=== PATIENT | male | born 1935 | race Caucasian/White ===

== ENCOUNTER 2017-01-08 17:38 | Inpatient (IN) | payer MEDICARE, BC ==
[~2017-01-08] VITALS: Ht 170.2 cm; Wt 91.2 kg
[~2017-01-08 17:38] MED LIST: ACTOS45 MG PO; ARICEPT10 MG PO; ASPIRIN81 MG PO; BAYER CHEWABLE81 MG PO; BUMETANIDE0.5 MG PO; COUMADIN3 MG; COUMADIN6 MG; COUMADIN6 MG PO; COZAAR25 MG PO; COZAAR50 MG PO; EXELON1 PATCH .1 TRANSDERM; EXELON1 PATCH .2 TRANSDERM; FLECAINIDE ACE100 MG PO; FLOMAX0.4 MG PO; K-DUR20 MEQ PO; KLONOPIN1 MG PO; LIPITOR20 MG PO; MULTI-DAY VITAM1 TAB PO; PERCOCET 10/3251 TA1 PO; PLAVIX75 MG PO; PROTONIX40 MG PO; TAMBOCOR100 MG PO; VESICARE10 MG PO; VESICARE5 MG PO; VITAMIN B PO; VITAMIN D31000 UNI2 PO
[2017-01-08 18:44] LABS: HEMATOCRIT 37.8 % (42.0-54.0); MCH 31.7 pg (26.0-34.0); MCHC 31.7 g/dL (31.0-37.0); MCV 99.7 fL (80.0-100.0); MEAN PLATELET VOLUME 10.1 fL (7.4-10.4); PLATELET COUNT 203 10x3/uL (130-400); RBC 3.79 10x6/uL (4.20-6.10); RDW 15.7 % (11.5-14.5); WBC 6.5 10x3/uL (4.8-10.8)
[2017-01-08 19:03] LABS: ALBUMIN 3.1 g/dL (3.4-5.0); ANION GAP 7.9 mmol/L (8-16); BILIRUBIN - TOTAL 0.69 mg/dL (0.2-1.3); CALCIUM 8.9 mg/dL (8.5-10.1); CARBON DIOXIDE 30.9 mmol/L (21.0-32.0); CREATININE - SERUM 1.9 mg/dL (0.6-1.3); MAGNESIUM - SERUM 1.7 mg/dL (1.8-2.4); POTASSIUM - SERUM 4.8 mmol/L (3.5-5.1); PROTEIN - SERUM 7.1 g/dL (6.4-8.2)
[2017-01-08 19:08] LABS: INR 2.79 (0.85-1.17); PROTIME 29.7 SECONDS (11.6-15.0)
[2017-01-08 19:10] LABS: LYMPHOCYTES 27 % (15-50); MONOCYTES 1 % (2-11); NEUTROPHILS 72 % (40-80); PLATELET ESTIMATE NORMAL
--- NOTE | 2017-01-08 19:55 | NUR ---
PATIENT RESTING IN BED AND DENIES NEEDS AT THIS TIME. NO SIGNS OF DISTRESS. BED IN LOWEST POSITION AND CALL LIGHT WITHIN REACH. ENCOURAGED THE PATIENT TO CALL IF HE HAS NEEDS. THORACIC SURGEON ARRIVED TO TAKE PATIENT FOR XRAYS ORDERED.
[2017-01-08 20:00] VITALS: BP 120/60
--- NOTE | 2017-01-08 20:08 | NUR ---
PATIENT RETURNED FROM XRAY.
[2017-01-08 22:55] VITALS: BP 128/76; BMI 31.5
[2017-01-09] VITALS: BP 123/68
[2017-01-09 06:44] LABS: PROTIME 31.4 SECONDS (11.6-15.0)
[2017-01-09 07:40] LABS: APPEARANCE CLEAR (CLEAR); BILIRUBIN NEGATIVE (NEGATIVE); COLOR YELLOW (YELLOW); GLUCOSE NEGATIVE (NEGATIVE); KETONE NEGATIVE (NEGATIVE); LEUKOCYTE ESTERASE NEGATIVE (NEGATIVE); NITRITE NEGATIVE (NEGATIVE); PROTEIN NEGATIVE (NEGATIVE); UROBILINOGEN NORMAL (NORMAL)
--- NOTE | 2017-01-09 07:57 | NUR ---
A&O, DENIES NEEDS, ASSESSMENT COMPLETE, BED LOWEST POSITION, SCD'S ON, CALL LIGHT IN REACH, WILL CONTINUE TO MONITOR
[2017-01-09 08:20] VITALS: BP 122/62
[2017-01-09 11:53] VITALS: BP 141/75
[2017-01-09 13:19] VITALS: Ht 170.2 cm; Wt 91.2 kg
--- NOTE | 2017-01-09 14:31 | NUR ---
SLEEPING AT THIS TIME WITH RESPIRATIONS EVEN AND NON LABORED. FAMILY AT BEDSIDE. CALL LIGHT IN REACH, WILL CONTINUE WITH PLAN OF CARE.
[2017-01-09 15:56] VITALS: BP 119/62
--- NOTE | 2017-01-09 19:30 | NUR ---
ASSISTED PATIENT TO THE RESTROOM AND CHANGED HIS LINENS. PATIENT IS RESTING IN BED AND DENIES NEEDS AT THIS TIME. BED IN LOWEST POSITION, CALL LIGHT WITHIN REACH, AND BOX ALARM ON AND ATTACHED TO THE PATIENT. ENCOURAGED THE PATIENT TO CALL IF HE HAS NEEDS.
[2017-01-09 20:00] VITALS: BP 98/65
[2017-01-10] VITALS: BP 113/64
[2017-01-10 04:00] VITALS: BP 121/64
[2017-01-10 06:13] LABS: BASOPHILS 0.1 % (0-2); EOSINOPHILS 1.1 % (0-7); HEMATOCRIT 33.3 % (42.0-54.0); HEMOGLOBIN 10.8 g/dL (13.5-17.5); IMMATURE GRANULOCYTES 0.3 % (0-5); LYMPHOCYTES 16.3 % (15-50); MCH 31.8 pg (26.0-34.0); MCHC 32.4 g/dL (31.0-37.0); MCV 97.9 fL (80.0-100.0); MEAN PLATELET VOLUME 10.5 fL (7.4-10.4); MONOCYTES 8.1 % (2-11); NEUTROPHILS 74.1 % (40-80); PLATELET COUNT 200 10x3/uL (130-400); RDW 15.9 % (11.5-14.5); WBC 7.9 10x3/uL (4.8-10.8)
[2017-01-10 06:17] LABS: INR 2.56 (0.85-1.17); PROTIME 27.7 SECONDS (11.6-15.0)
[2017-01-10 06:22] LABS: CALCIUM 8.4 mg/dL (8.5-10.1); CARBON DIOXIDE 24.6 mmol/L (21.0-32.0); CREATININE - SERUM 1.7 mg/dL (0.6-1.3); POTASSIUM - SERUM 4.6 mmol/L (3.5-5.1)
[2017-01-10 08:23] VITALS: BP 137/66
[2017-01-10 12:42] VITALS: BP 119/63
[2017-01-10 17:04] VITALS: BP 121/69
[2017-01-10 19:00] VITALS: BP 134/66
--- NOTE | 2017-01-10 19:36 | NUR ---
PATIENT RESTING IN BED AND DENIES NEEDS AT THIS TIME. ASSESSMENT AND VITALS COMPLETE. BED IN LOWEST POSITION AND CALL LIGHT WITHIN REACH. ENCOURAGED THE PATIENT AND FAMILY TO CALL IF THEY HAVE NEEDS.
[2017-01-11 02:49] VITALS: BP 132/66
[2017-01-11 04:00] VITALS: BP 119/64
[2017-01-11 08:03] LABS: BASOPHILS 0 % (0-2); EOSINOPHILS 1.7 % (0-7); HEMATOCRIT 32.7 % (42.0-54.0); HEMOGLOBIN 10.7 g/dL (13.5-17.5); IMMATURE GRANULOCYTES 0.5 % (0-5); LYMPHOCYTES 17.3 % (15-50); MCH 32.1 pg (26.0-34.0); MCHC 32.7 g/dL (31.0-37.0); MCV 98.2 fL (80.0-100.0); MEAN PLATELET VOLUME 9.6 fL (7.4-10.4); MONOCYTES 9.3 % (2-11); NEUTROPHILS 71.2 % (40-80); PLATELET COUNT 182 10x3/uL (130-400); RBC 3.33 10x6/uL (4.20-6.10); RDW 16.1 % (11.5-14.5); WBC 7.5 10x3/uL (4.8-10.8)
[2017-01-11 08:22] LABS: ANION GAP 12.2 mmol/L (8-16); CALCIUM 8.6 mg/dL (8.5-10.1); CARBON DIOXIDE 25.3 mmol/L (21.0-32.0); CREATININE - SERUM 1.5 mg/dL (0.6-1.3); POTASSIUM - SERUM 4.5 mmol/L (3.5-5.1)
[2017-01-11 08:23] LABS: INR 3.33 (0.85-1.17); PROTIME 34.1 SECONDS (11.6-15.0)
[2017-01-11 08:24] VITALS: BP 137/69
--- NOTE | 2017-01-11 10:21 | NUR ---
RIGHT JVD. RIGHT ARM HAS DEPENDENT EDEMA. EXPIRATORY WHEEZES PER AUSCULTATION IN ALL LUNG NUNO. DECREASED IVF TO 10ML/HR.
[2017-01-11 11:20] VITALS: BP 112/65
[2017-01-11 16:12] VITALS: BP 112/62
[2017-01-11 19:00] VITALS: BP 100/59
--- NOTE | 2017-01-11 23:41 | NUR ---
1919)REC'D. IN BED RESP. DEEP AND EVEN. FAMILY AT BEDSIDE.MONITOR SHOWING CAF.WILL CONTINUE TO MONITOR FOR ANY CHGES. AND FOLLOW CURRENT PLAN OF CARE.
[2017-01-12 04:00] VITALS: BP 123/65
[2017-01-12 05:51] LABS: BASOPHILS 0.1 % (0-2); EOSINOPHILS 1.8 % (0-7); HEMATOCRIT 32.7 % (42.0-54.0); HEMOGLOBIN 10.6 g/dL (13.5-17.5); IMMATURE GRANULOCYTES 0.4 % (0-5); LYMPHOCYTES 13.5 % (15-50); MCH 31.8 pg (26.0-34.0); MCHC 32.4 g/dL (31.0-37.0); MCV 98.2 fL (80.0-100.0); MEAN PLATELET VOLUME 10.4 fL (7.4-10.4); MONOCYTES 9.3 % (2-11); NEUTROPHILS 74.9 % (40-80); PLATELET COUNT 204 10x3/uL (130-400); RBC 3.33 10x6/uL (4.20-6.10); RDW 16.3 % (11.5-14.5); WBC 6.7 10x3/uL (4.8-10.8)
[2017-01-12 06:17] LABS: ALBUMIN 2.7 g/dL (3.4-5.0); ANION GAP 12.9 mmol/L (8-16); BILIRUBIN - TOTAL 0.72 mg/dL (0.2-1.3); CALCIUM 8.8 mg/dL (8.5-10.1); CARBON DIOXIDE 25.8 mmol/L (21.0-32.0); CREATININE - SERUM 1.6 mg/dL (0.6-1.3); POTASSIUM - SERUM 4.7 mmol/L (3.5-5.1); PROTEIN - SERUM 6.2 g/dL (6.4-8.2)
[2017-01-12 08:16] VITALS: BP 111/60
[2017-01-12 08:19] LABS: INR 3.89 (0.85-1.17); PROTIME 38.7 SECONDS (11.6-15.0)
[2017-01-12 11:48] VITALS: BP 113/62
--- NOTE | 2017-01-12 14:16 | NUR ---
NUTRITION MONITORING & EVAL CHART REVIEWED, PT VISIT. TOLERATING ADA DIET, WITH GOOD PO INTAKE. GLUCERNA SHAKE WITH MEALS. RD FOLLOWING
[2017-01-12 15:20] VITALS: BP 126/58
--- NOTE | 2017-01-12 15:38 | NUR ---
RETURNED NS BAG TO THE [facility], NS INFUSING AT KVO
--- NOTE | 2017-01-12 15:40 | NUR ---
Patient Name: JOSEPH SARAVIA Admission Status: Elective Accout number: [id number] Admission Date: 01-08-2017 : 1935 Admission Diagnosis: Attending: THIERRY Current LOS: 4 Anticipated DC Date: 01-14-2017 Planned Disposition: Home with Home Health Primary Insurance: MEDICARE A & B Discharge Planning Comments: CM met with patient, ([place]y) daughter (Gianna) to assess discharege planning/needs. Patients plan is to return home where he lives with his and would like to have [facility]. They have used them in the past and was very happy. SUBHASH signed. Pt states they currently have a walker, cane, elevated toilet seat, wheelchair & shower chair. There are 3 stairs in the home with a rail. Pt states his environment is safe to return to and his helps him with his medications. PCP is Dr Spaulding and he uses [facility] [address]. CM will continue to follow and assist as needed with discharge planning needs. PCP: Becky Pharmacy: [facility] [address] ([place]) [phone] Church Worker: Karyna Scott * Is the patient Alert and Oriented? Yes 0 * How many steps to enter\exit or inside your home? 3 0 * PCP BECKY 0 * Pharmacy [facility] [address] 0 * Preadmission Environment Home with Family 0 * ADLs Partial Dependent 0 * Partial ADLs (Assistance needed) Medication Management 0 * Equipment Bedside Commode Cane Elevated [place] Seat Rolling Walker Shower Chair Walker Wheelchair 0 * List name and contact numbers for known caregivers / representatives who currently or will assist patient after discharge: ADDY SARAVIA() [phone] 0 * Community resources currently utilized None 0 * Additional services required to return to the preadmission environment? Yes 0 * Can the patient safely return to the preadmission environment? Yes 0 * Has this patient been hospitalized within the prior 30 days at any hospital? No 0 Grand Total: 0
[2017-01-12 19:00] VITALS: BP 116/43
[2017-01-13] VITALS: BP 124/64
--- NOTE | 2017-01-13 02:00 | NUR ---
PT IN BED WITH NO DISTRESS. RESPIRATIONS ARE EVEN AND UNLABORED. SIDE RAILS ARE UP X 2. BED IS IN LOWEST POSITION. CALL LIGHT IS WITHIN REACH.
[2017-01-13 04:00] VITALS: BP 109/66
[2017-01-13 05:23] LABS: BASOPHILS 0.1 % (0-2); EOSINOPHILS 2.1 % (0-7); HEMATOCRIT 31.9 % (42.0-54.0); HEMOGLOBIN 10.5 g/dL (13.5-17.5); IMMATURE GRANULOCYTES 0.3 % (0-5); LYMPHOCYTES 14.1 % (15-50); MCH 32.2 pg (26.0-34.0); MCHC 32.9 g/dL (31.0-37.0); MCV 97.9 fL (80.0-100.0); MEAN PLATELET VOLUME 10.4 fL (7.4-10.4); MONOCYTES 8.7 % (2-11); NEUTROPHILS 74.7 % (40-80); PLATELET COUNT 193 10x3/uL (130-400); RBC 3.26 10x6/uL (4.20-6.10); RDW 16.1 % (11.5-14.5); WBC 6.8 10x3/uL (4.8-10.8)
[2017-01-13 05:41] LABS: ALBUMIN 2.7 g/dL (3.4-5.0); ANION GAP 12.3 mmol/L (8-16); BILIRUBIN - TOTAL 0.9 mg/dL (0.2-1.3); CALCIUM 8.7 mg/dL (8.5-10.1); CARBON DIOXIDE 25.7 mmol/L (21.0-32.0); CREATININE - SERUM 1.5 mg/dL (0.6-1.3); PROTEIN - SERUM 6.1 g/dL (6.4-8.2)
[2017-01-13 07:55] VITALS: BP 124/64
[2017-01-13 07:57] LABS: PROTIME 31.5 SECONDS (11.6-15.0)
[2017-01-13 07:58] LABS: INR 3.02 (0.85-1.17)
--- NOTE | 2017-01-13 08:27 | NUR ---
AWAKE AND ALERT. ORIENTED TO SELF AND SITUATION. TENDS TO SHOW BELIGERENCE WHEN UNABLE TO ANSWER QUESTIONS IE WHAT DAY AND WHERE ARE YOU. LUNGS ARE DIMINISHED THROUGHOUT WITH OCCASSIONAL DRY COUGH NOTED. SKIN IS INTACT WITHOUT REDNESS, BUT BOTH ARMS SHOW SIGNS OF PREVIOUS EDEMA. ALSO LUMP NOTED TO RIGHT CAROTID ATERY, DAUGHTER REPORTS THIS BEING THERE FOR LAST 3 DAYS. WILL MONITOR. SITTING UP ON SIDE OF BED EATING BREAKFAST. DENIES NEEDS.
--- NOTE | 2017-01-13 10:17 | NUR ---
ATE ALL OF BREAKFAST. FAMILY IN ROOM. DENIES NEEDS.
[2017-01-13 11:17] VITALS: BP 113/73
--- NOTE | 2017-01-13 11:31 | EC ---
PATIENT:JOSEPH SARAVIA DATE OF SERVICE: 01/08/17 SEX: M MEDICAL RECORD: [id number] DATE OF : [birth year] LOCATION:[facility] AGE OF PATIENT: 82 ADMISSION DATE: 01/08/17 REFERRING PHYSICIAN: INTERPRETING PHYSICIAN: LICHA CONN MD ECHOCARDIOGRAM REPORT ECHO CHARGES 4 ECHO COMPLETE CLINICAL DIAGNOSIS: FATIGUE/SOB/COUGH HX AFIB/CAD/HTN/CABG ECHOCARDIOGRAPHIC MEASUREMENTS (adult normal given) AC root (d.<3.7cm) 4.4 LV Septum d (<1.2 cm> 1.6 Valve Excursion 2.0 LV Septum (systole) 1.8 Left Atria (s.<4.0cm> 4.1 LVPW d(<1.2cm) 1.6 RV (d.<2.3cm) 5.1 LVPW (sytole) 1.8 LV diastole(<5.6CM) 5.2 MV E-F(>70mm/sec) LV systole 3.6 LVOT Diameter 1.7 MV exc.(>10mm) 2.1 Est.ejection fraction (50-75%) Pericardial Effusion N DOPPLER: LVIT A 48.0 E 99.0 LA RVSP 41 LVOT 100 AOP1/2T Asc. Ao 194 RVOT 61 RA PA 100 AV Gradient Peak 15.05 AV Mean 8.19 AV Area 1.5 MV Gradient Peak 8.12 MV Mean 2.69 MV Area COMMENTS: Student Finance Advisor: [employer] Counselor:Uriel Underwood TAPE# PACS DATE OF SERVICE: 01/12/2017 Echocardiogram FINDINGS: 1. Left ventricle chamber size is within normal limits. Left ventricular systolic function is mildly reduced, overall ejection fraction 40% to 45%. There is mild global hypokinesis throughout all segments with no discrete wall motion abnormalities. 2. Left atrium is enlarged at 4.1 cm. Right atrium and right ventricular ECHOCARDIOGRAM REPORT [id number] JOSEPH SARAVIA chamber sizes are as well mildly dilated. 3. Valvular structures: Aortic valve demonstrates mild calcific aortic stenosis. Valve area calculates to 1.5 cm squared. There is a gradient of 15 mm across the valve. The remaining valvular structures have normal structure and motion. 4. Doppler interrogation elsewise reveals mild mitral regurgitation, mild tricuspid regurgitation, no other valvular insufficiency or stenosis. 5. No evidence of pericardial effusion or left ventricular thrombus. TRANSINT:[id number] Voice Confirmation ID: [id number] DOCUMENT ID: [id number] LICHA CONN MD at 1131 CC: [id number] DICTATION DATE: 01/12/17 1240 ECHOCARDIOLOGIST: 01/12/17 1630 ADM IN [place] [id number] [place] [address]
--- NOTE | 2017-01-13 12:00 | NUR ---
FSBS 164. GIVEN 2 UNITS HUMALOG SUBQ PER SS. FAMILY AT BEDSIDE.
--- NOTE | 2017-01-13 13:24 | NUR ---
AMBULATED 500 FEET WITH RW SBA.
[2017-01-13 14:55] VITALS: BP 116/68
--- NOTE | 2017-01-13 16:45 | NUR ---
FSBS 143. NO COVERAGE REQUIRED.
--- NOTE | 2017-01-13 18:23 | NUR ---
ATE ALL OF SUPPER. NO CHANGES NOTED. DENIES NEEDS.
[2017-01-13 19:00] VITALS: BP 111/66
--- NOTE | 2017-01-13 22:32 | NUR ---
REC'D PATIENT LYING IN BED. ALERT AND ORIENTED X3. IS STATING "I SEE SMOKE AROUND THAT CUP" DENIED PAIN AT THIS TIME. WILL ADMINISTER MEDS PRESCRIBED. DENIED PAIN AT THIS TIME. INSTRUCTED TO CALL IF NEEDED ANYTHING. VERBALIZED UNDERSTANDING. BED LOW, LOCKED, CALLL LIGHT IN REACH, ALARM ON. DAUGHTER IS AT BEDSIDE.
[2017-01-14] VITALS: BP 113/59
--- NOTE | 2017-01-14 02:45 | NUR ---
PATIENT RESTING IN BED WITH EYES CLOSED AND NO VISIBLE SIGNS OF DISTRESS. BED IN LOWEST POSITION AND CALL LIGHT WITHIN REACH.
--- NOTE | 2017-01-14 03:51 | NUR ---
PATIENT IS LYING IN BED AWAKE. NO DISTRESS NOTED. DENIED PAIN AT THIS TIME. DENIED FURTHER NEEDS AT THIS TIME. INSTRUCTED TO CALL IF NEEDED ANYTHING. BED LOW, LOCKED, CALL LIGHT IN REACH, ALARM ON.
[2017-01-14 04:00] VITALS: BP 111/66
[2017-01-14 05:37] LABS: BASOPHILS 0.1 % (0-2); HEMATOCRIT 31.6 % (42.0-54.0); HEMOGLOBIN 10.3 g/dL (13.5-17.5); IMMATURE GRANULOCYTES 0.3 % (0-5); LYMPHOCYTES 12.8 % (15-50); MCH 31.6 pg (26.0-34.0); MCHC 32.6 g/dL (31.0-37.0); MCV 96.9 fL (80.0-100.0); MEAN PLATELET VOLUME 10.6 fL (7.4-10.4); MONOCYTES 7.9 % (2-11); NEUTROPHILS 76.9 % (40-80); PLATELET COUNT 209 10x3/uL (130-400); RBC 3.26 10x6/uL (4.20-6.10); WBC 7.6 10x3/uL (4.8-10.8)
[2017-01-14 05:57] LABS: ALBUMIN 2.6 g/dL (3.4-5.0); ANION GAP 11.8 mmol/L (8-16); BILIRUBIN - TOTAL 0.9 mg/dL (0.2-1.3); CALCIUM 8.7 mg/dL (8.5-10.1); CARBON DIOXIDE 25.1 mmol/L (21.0-32.0); CREATININE - SERUM 1.5 mg/dL (0.6-1.3); POTASSIUM - SERUM 4.9 mmol/L (3.5-5.1); PROTEIN - SERUM 6.1 g/dL (6.4-8.2)
--- NOTE | 2017-01-14 07:13 | NUR ---
PATIENT HAD NO PRODUCTIVE COUGH ALL NIGHT.
--- NOTE | 2017-01-14 07:53 | NUR ---
AWAKE AND ALERT. ORIENTED X3. NO C/O AT THIS TIME. LUNGS ARE CLEAR BILATERALLY BUT DIMINISHED. OCCASSIONALLY PRODUCTIVE COUGH NOTED. SKIN IS INTACT WITHOUT REDNESS BUT 1-2 PLUS EDEMA NOTED TO BILATERAL ARMS. PLACED UP ON PILLOWS. WILL MONITOR. IV TO LEFT FOREARM IS PATENT WITHOUT REDNESS AT INSERTION SITE. DENIES NEEDS. AND DAUGHTER AT BEDSIDE.
[2017-01-14 08:02] VITALS: BP 146/74
--- NOTE | 2017-01-14 10:10 | NUR ---
RESTING QUIETLY IN BED. AT BEDSIDE. DENIES NEEDS.
[2017-01-14 12:00] VITALS: BP 125/67
--- NOTE | 2017-01-14 12:00 | NUR ---
FSBS 210. GIVEN 4 UNITS HUMALOG SUBQ PER SS. LUNCH SERVED IN ROOM.
[2017-01-14] MEDS ORDERED: IPRAT-ALBUT 0.5-3 ML UPD (13:36)
[2017-01-14] MEDS ORDERED: ZITHROMAX250 MG PO (13:36)
[2017-01-14] MEDS ORDERED: BROVANA15 MCG/2 M INH (13:36)
[2017-01-14] MEDS ORDERED: OMNICEF300 MG PO (13:36)
[2017-01-14] MEDS ORDERED: PULMICORT0.5 MG/21 INH (13:36)
[2017-01-14] MEDS ORDERED: FLORAJEN3 CAPS460 MG PO (13:36)
[2017-01-14] MEDS ORDERED: MUCINEX600 MG PO (13:36)
[2017-01-14] MEDS ORDERED: PROAIR HFA8.5 GM INH ×2 (15:08→15:09)
--- NOTE | 2017-01-14 15:49 | NUR ---
DISCHARGED TO HOME AMBULATORY WITH FAMILY. DISCHARGE INSTRUCTIONS GIVEN BOTH VERBALLY AND WRITTEN. ALL QUESTIONS ANSWERED. PATIENT AND FAMILY VERBALIZED UNDERSTANDING OF SAME. NEEDED PRESCRIPTIONS ESCRIBED TO PHARMACY OF CHOICE.
== END 2017-01-14 15:50 | disposition home health service (06) | DRG 195 ==
LOC: D.MS 17:38
PROVIDERS: Family Medicine; General Practice; ADMIT Family Medicine
DX: J18.9 Pneumonia, unspecified organism (principal); I48.91 Unspecified atrial fibrillation; I12.9 Hypertensive chronic kidney disease with stage 1 through stage 4 chronic kidney disease, or unspecified chronic kidney disease; N18.9 Chronic kidney disease, unspecified; E11.9 Type 2 diabetes mellitus without complications; F03.90 Unspecified dementia, unspecified severity, without behavioral disturbance, psychotic disturbance, mood disturbance, and anxiety

== ENCOUNTER 2017-01-16 14:05 | Inpatient (IN) | payer MEDICARE, BC ==
[~2017-01-16] VITALS: Ht 170.2 cm; Wt 77.7 kg
[~2017-01-16 14:05] MED LIST changes: +BROVANA15 MCG/2 M INH; +FLORAJEN3 CAPS460 MG PO; +IPRAT-ALBUT 0.5-3 ML UPD; +MUCINEX600 MG PO; +OMNICEF300 MG PO; +PROAIR HFA8.5 GM INH; +PULMICORT0.5 MG/21 INH; +ZITHROMAX250 MG PO
[2017-01-16 14:40] LABS: BASOPHILS 0.1 % (0-2); EOSINOPHILS 1.6 % (0-7); HEMATOCRIT 34.8 % (42.0-54.0); HEMOGLOBIN 11.4 g/dL (13.5-17.5); IMMATURE GRANULOCYTES 0.2 % (0-5); LYMPHOCYTES 17.2 % (15-50); MCH 31.9 pg (26.0-34.0); MCHC 32.8 g/dL (31.0-37.0); MCV 97.5 fL (80.0-100.0); MEAN PLATELET VOLUME 10.3 fL (7.4-10.4); MONOCYTES 9.7 % (2-11); NEUTROPHILS 71.2 % (40-80); PLATELET COUNT 230 10x3/uL (130-400); RBC 3.57 10x6/uL (4.20-6.10); RDW 15.6 % (11.5-14.5); WBC 8.5 10x3/uL (4.8-10.8)
[2017-01-16 14:51] LABS: INR 2.93 (0.85-1.17); PROTIME 30.8 SECONDS (11.6-15.0)
[2017-01-16 14:52] LABS: APTT 61.5 SECONDS (22.8-39.4)
[2017-01-16 14:56] LABS: ANION GAP 12.7 mmol/L (8-16); BILIRUBIN - TOTAL 1.28 mg/dL (0.2-1.3); CALCIUM 9.1 mg/dL (8.5-10.1); CARBON DIOXIDE 28.6 mmol/L (21.0-32.0); CREATININE - SERUM 1.6 mg/dL (0.6-1.3); POTASSIUM - SERUM 4.3 mmol/L (3.5-5.1)
[2017-01-16 15:04] LABS: TROPONIN-I 0.044 ng/mL (0.000-0.060)
[2017-01-16 16:00] LABS: APPEARANCE HAZY (CLEAR); BILIRUBIN NEGATIVE (NEGATIVE); COLOR YELLOW (YELLOW); GLUCOSE NEGATIVE (NEGATIVE); KETONE NEGATIVE (NEGATIVE); LEUKOCYTE ESTERASE TRACE (NEGATIVE); NITRITE NEGATIVE (NEGATIVE); PROTEIN NEGATIVE (NEGATIVE); SPECIFIC GRAVITY 1.015 (1.005-1.020); UROBILINOGEN NORMAL (NORMAL)
[2017-01-16 16:01] LABS: BACTERIA FEW /hpf (NONE SEEN); EPITHELIAL CELLS OCC /hpf (0-5); WHITE CELLS - URINE 0-5 /hpf (0-5)
--- NOTE | 2017-01-16 19:45 | NUR ---
REC FROM ER VIA WC. ALERT/ORIENTED X 4, BUT HAS SOME MEMORY IMPAIRMENT. AMBULATED TO BED WITH ASSISTANCE. CRACKLES AUSCULTATED IN UPPER LOBES. RR 20 UNLABORED. 02 AT 92% ON RA. DENIES ANY PAIN, BUT ONLY DISCOMFORT OF FEET WHEN WALKING. 4+ PITTING EDEMA OF BILATERAL FEET AND LEGS ASSESSED. BRUISES OF BILATERAL ARM NOTED. IV IN L LEFT HAND INTACT SL. HIS DAUGHTER IS PRESENT WITH HIM. ORIENTED TO ROOM AND CALL LIGHT.
[2017-01-16] MEDS ORDERED: BUMETANIDE0.5 MG PO (19:46)
[2017-01-16 20:00] VITALS: BP 126/72
--- NOTE | 2017-01-16 21:30 | NUR ---
PLACED TELEMETRY LEADS, SHOWS 92 SR ON MONITOR. ADMIN BUMEX 1MG IV. RT PRESENT TO GIVE RESP UPDRAFT TX.
[2017-01-17] VITALS (7 sets, daily range): BP systolic 99–126; BP diastolic 52–73; BMI 31.4
--- NOTE | 2017-01-17 04:54 | NUR ---
AWAKE. DENIES ANY NEEDS. EMPTIED URINAL.
[2017-01-17 06:38] LABS: ANION GAP 9.3 mmol/L (8-16); CALCIUM 8.9 mg/dL (8.5-10.1); CARBON DIOXIDE 31.4 mmol/L (21.0-32.0); CREATININE - SERUM 1.5 mg/dL (0.6-1.3); POTASSIUM - SERUM 3.7 mmol/L (3.5-5.1)
--- NOTE | 2017-01-17 10:49 | NUR ---
ALERT AND ORIENTED X4. RESTING IN BED. FAMILY AT BEDSIDE. DENIES PAIN OR SOB. DIURESING CONTINUED. HOME MEDICATIONS GIVEN: OMNICEF, FLECAINIDE 100mg, POTASSIUM, VITAMIN D, ASA 81mg, MULTI VITAMIN, MUCINEX, AND FLOMAX. OK TO TAKE HOME ANTIBIOTICS PER . DENIES ANY NEEDS. BED LOCKED AND LOW. CALL LIGHT IN REACH. TWO SIDERAILS UP. SINUS RHTHYM 87bpm ON TELEMETRY. REFUSE SCDs.
--- NOTE | 2017-01-17 19:35 | NUR ---
RESUMED CARE OF PT, UP IN CHAIR RESPIRATIONS EVEN AND UNLABORED ON ROOM AIR. FAMILY AT BEDSIDE, PLAN OF CARE DISCUSSED. 90 SR ON TELEMETRY. FAMILY CONCERNED THAT HE HAS NOT URINATED YET SINCE BUMEX WAS ADMINISTERED @ 1810. PT STATES HE DOES NOT FEEL AN URGE TO VOID AT THIS TIME. WILL CONTINUE TO MONITOR, CALL LIGHT IN REACH. SEE NURSE ASSESSMENT.
[2017-01-18] VITALS: BP 115/61
--- NOTE | 2017-01-18 00:53 | NUR ---
LYING IN BED WITH EYES CLOSED, CALL LIGHT IN REACH. WILL CONTINUE TO MONITOR.
[2017-01-18 04:00] VITALS: BP 131/67
[2017-01-18 05:54] LABS: BASOPHILS 0.1 % (0-2); EOSINOPHILS 1.7 % (0-7); HEMATOCRIT 31.6 % (42.0-54.0); HEMOGLOBIN 10.4 g/dL (13.5-17.5); IMMATURE GRANULOCYTES 0.3 % (0-5); LYMPHOCYTES 15.2 % (15-50); MCH 31.6 pg (26.0-34.0); MCHC 32.9 g/dL (31.0-37.0); MONOCYTES 9.7 % (2-11); PLATELET COUNT 233 10x3/uL (130-400); RBC 3.29 10x6/uL (4.20-6.10); RDW 15.5 % (11.5-14.5); WBC 6.9 10x3/uL (4.8-10.8)
--- NOTE | 2017-01-18 06:14 | NUR ---
NO CHAGNES FROM PREVIOUS ASSESSMENT, CALL LIGHT IN REACH.
[2017-01-18 06:30] LABS: INR 2.19 (0.85-1.17); PROTIME 24.4 SECONDS (11.6-15.0)
--- NOTE | 2017-01-18 07:18 | NUR ---
AM ROUNDS- PT IN BED. PT STATED " WHERE AM I AT". ORIENTED PT TO WHERE HE IS AT. THEN PT STATED " WHY AM I AT THE HOSPITAL, I AM NOT SICK, I AM 82 YEARS OLD AND DOING JUST FINE, DON'T KNOW WHO BROUGHT ME HERE". INFOMRED PT THAT HE WAS BROUGHT IN WITH CHF. PT DENIES ANY OTHER NEEDS AT THIS TIME. CALL LIGHT IN REACH, NAD NOTED, WILL CONTINUE TO MONITOR.
[2017-01-18 08:00] VITALS: BP 106/61
--- NOTE | 2017-01-18 09:05 | NUR ---
ADMINISTERED MORNING MEDICATIONS, PT TOOK OWN ZITHROMAX ANTIBIOTIC FROM HOME. PT DENIES ANY NEEDS AT THIS TIME. CALL LIGHT IN REACH, AT BEDSIDE, NAD NOTED, WILL CONTINUE TO MONITOR.
--- NOTE | 2017-01-18 11:22 | NUR ---
CALLED PHARMACY AND SPOKE WITH BRETT, INFORMED HIM THAT I NEED HUMULIN FOR PT. BRETT STATED THAT HE WILL BRING IT UP SOON.
--- NOTE | 2017-01-18 12:11 | NUR ---
BLOOD SUGAR OF 185, 2 UNITS OF HUMULIN R GIVEN PER S/S. PT IN BED, FIXING TO EAT LUNCH, DENIES ANY NEEDS AT THIS TIME, AT BEDSIDE, CALL LIGHT IN REACH, NAD NOTED, WILL CONTINUE TO MONITOR.
[2017-01-18 12:17] VITALS: BP 111/75
[2017-01-18 12:43] VITALS: Ht 170.2 cm; Wt 77.7 kg
--- NOTE | 2017-01-18 16:11 | NUR ---
Patient Name: JOSEPH SARAVIA Admission Status: ER Accout number: [id number] Admission Date: 01-16-2017 : 1935 Admission Diagnosis:CHRONIC PULMONARY EDEMA Attending: COLBY Current LOS: 2 Anticipated DC Date: Planned Disposition: Home Primary Insurance: MEDICARE A & B Discharge Planning Comments: * Is the patient Alert and Oriented? Yes 0 * How many steps to enter\exit or inside your home? 3 0 * PCP DR. PENA 0 * Pharmacy [facility] 0 * Preadmission Environment Home with Family 0 * ADLs Partial Dependent 0 * Partial ADLs (Assistance needed) Medication Management 0 * Equipment Cane Elevated Toliet Seat Rolling Walker Shower Chair Walker Wheelchair 0 * Other Equipment [facility] - MEDICAL EQUIPMENT PROVIDER PREFERENCE 0 * List name and contact numbers for known caregivers / representatives who currently or will assist patient after discharge: ADDY SARAVIA, SPOUSE, 0 * Community resources currently utilized Home Health Other 0 * Please name any agencies selected above. [facility] (NURSING AND PHYSICAL THERAPY) [facility] 0 * Additional services required to return to the preadmission environment? No 0 * Can the patient safely return to the preadmission environment? Yes 0 * Has this patient been hospitalized within the prior 30 days at any hospital? Yes 0 CM MET WITH PT AND SPOUSE IN ROOM TO DISCUSS DISCHARGE PLANNING AND NEEDS. PT ORIENTED TO SELF AND PLACE. SPOUSE REPORTS PT HAS SEVERE DEMENTIA AND SHE IS HIS SCHOOL LUNCH MONITOR AT HOME; PT HAS ALL NEEDED MEDICAL EQUIPMENT AT HOME, PROVIDER IS AC. PT HAS HOME HEALTH WITH [facility] WHO HAS NOT YET ADMITTED PT AND [facility]. CM DISCUSSED AVAILABILITY OF HOME HEALTH, REHAB SERVICES AND MEDICAL EQUIPMENT. PT'S SPOUSE REPORTS THAT PT IS NOT GOING TO ANY REHAB, INPATIENT OR CORRECTION FACILITY; SPOUSE REPORTS ABILITY TO CARE FOR PT AT HOME AND WOULD LIKE HOME HEALTH AND HOUSECALLS RESUMED. SPOUSE OR CHILDREN WILL PICK PT UP FOR DISCHARGE HOME. IMPORTANT MESSAGE FROM MEDICARE PROVIDED AND EXPLAINED. CM CALLED [facility], , SPOKE TO GENET WHO REPORTS THEY WILL ACCEPT PT FOR HOME HEALTH AT DISCHARGE AND CAN OBTAIN ORDERS FROM PT'S PRIMARY DOCTOR IF NEEDED; PT WAS TO BE ADMITTED FOR NURSING AND PHYSICAL THERAPY AFTER LAST HOSPITAL STAY. FOR DISCHARGE AND RESUMPTION OF HOME HEALTH, NOTIFY [facility] AT [phone], FAX DISCHARGE INFORMATION TO JULITA AT [phone]. CM TO FOLLOW AND ASSIST NEEDED. Medical Support Assistant: Fabricio Jarvis
[2017-01-18 16:28] VITALS: BP 99/60
--- NOTE | 2017-01-18 19:35 | NUR ---
ALERT/AWAKE RETURNING TO BED FROM BR. STATED HAD A BM. IV IN L HAND INTACT SL. EXTRACTOR OPERATOR SHOWS 89 CAFIB. REFUSES SCD'S ON. HIS SON IS PRESENT IN ROOM. STAYING THE NIGHT. GOT HIM A PILLOW/BLANKET.
[2017-01-18 21:46] VITALS: BP 111/62
[2017-01-19 01:37] VITALS: BP 95/52
[2017-01-19 05:32] VITALS: BP 108/60
[2017-01-19 05:48] LABS: BASOPHILS 0.2 % (0-2); EOSINOPHILS 1.2 % (0-7); HEMATOCRIT 31.7 % (42.0-54.0); HEMOGLOBIN 10.4 g/dL (13.5-17.5); IMMATURE GRANULOCYTES 0.3 % (0-5); LYMPHOCYTES 11.3 % (15-50); MCH 31.6 pg (26.0-34.0); MCHC 32.8 g/dL (31.0-37.0); MCV 96.4 fL (80.0-100.0); MEAN PLATELET VOLUME 10.4 fL (7.4-10.4); MONOCYTES 8.4 % (2-11); NEUTROPHILS 78.6 % (40-80); PLATELET COUNT 235 10x3/uL (130-400); RBC 3.29 10x6/uL (4.20-6.10); RDW 15.5 % (11.5-14.5); WBC 6.6 10x3/uL (4.8-10.8)
[2017-01-19 05:58] LABS: INR 2.04 (0.85-1.17); PROTIME 23.1 SECONDS (11.6-15.0)
[2017-01-19 06:03] LABS: ANION GAP 9.6 mmol/L (8-16); CALCIUM 8.6 mg/dL (8.5-10.1); CARBON DIOXIDE 31.2 mmol/L (21.0-32.0); CREATININE - SERUM 1.6 mg/dL (0.6-1.3); POTASSIUM - SERUM 3.8 mmol/L (3.5-5.1)
--- NOTE | 2017-01-19 06:22 | NUR ---
ADMIN SCHED MEDS. CHECKED BS AT 109. DENIES ANY NEEDS OR DISCOMFORTS. HIS SON IS PRESENT IN ROOM.
--- NOTE | 2017-01-19 07:18 | NUR ---
AM ROUNDS- PT IN BED, RECEIVING A UPDRAFT AT THIS TIME. SON AT BEDSIDE, CALL LIGHT IN REACH, NAD NOTED, WILL CONTINUE TO MONITOR.
[2017-01-19 08:15] VITALS: BP 135/67
--- NOTE | 2017-01-19 08:20 | NUR ---
ADMINISTERED MORNING MEDICATIONS, PT EATING BREAKFAST, DENIES ANY NEEDS AT THIS TIME. AT BEDSIDE, CALL LIGHT IN REACH, NAD NOTED, WILL CONTINUE TO MONITOR.
--- NOTE | 2017-01-19 09:18 | NUR ---
DOBUTAMINE DRIP STARTED AT THIS TIME, TO INFUSE AT 13.4ML/HR. TO LEFT WRIST. PT IN BED, COUGHING DENIES ANY NEEDS. CALL LIGHT IN REACH, AT BEDSIDE, NAD NOTED, WILL CONTINUE TO MONITOR.
--- NOTE | 2017-01-19 11:18 | NUR ---
BLOOD SUGAR OF 150, NO COVERAGE NEEDED PER SLIDING SCALE. PT IN BED, DENIES ANY NEEDS AT THIS TIME. CALL LIGHT IN REACH, AT BEDSIDE, NAD NOTED, WILL CONTINUE TO MONITOR.
[2017-01-19 12:04] VITALS: BP 115/61
--- NOTE | 2017-01-19 16:03 | NUR ---
BLOOD SUGAR OF 201, 4UNITS OF HUMULIN GIVEN PER SLIDING SCALE TO RT ARM. PT STATES THAT HE STILL HAS NOT HAD A BM. INFORMED HIM THAT IT WILL PROBABLY BE TOMORROW BEFORE HE CAN HAVE BM. PT DENIES ANY OTHER NEEDS AT THIS TIME, CALL LIGHT IN REACH, AT BEDSIDE, WILL CONTINUE TO MONITOR.
[2017-01-19 16:12] VITALS: BP 105/53
--- NOTE | 2017-01-19 19:15 | NUR ---
ALERT/AWAKE TALKING TO MULTIPLE VISITORS PRESENT IN ROOM. DENIES PAIN OR ANY NEEDS. IV IN L HAND WITH DOBUTAMINE INFUSING AT 13.4 ML/HR. REFUSES SCD'S ON.
[2017-01-19 22:09] VITALS: BP 114/60
--- NOTE | 2017-01-20 00:14 | NUR ---
REC RESP UPDRAFT TX. DENIES ANY NEEDS. HIS DAUGHTER IS STAYING IN ROOM TONIGHT. NO QUESTIONS OR CONCERNS VOICED.
[2017-01-20 00:45] VITALS: BP 119/59
--- NOTE | 2017-01-20 03:57 | NUR ---
RESTING WITH EYES CLOSED. RR 16 EVEN U/L. NO S/S OF DISCOMFORT. BED IS LOW WITH SR UP X2. CALL LIGHT IN REACH.
[2017-01-20 05:13] VITALS: BP 115/64
[2017-01-20 05:15] LABS: BASOPHILS 0.1 % (0-2); EOSINOPHILS 0.8 % (0-7); HEMATOCRIT 30.8 % (42.0-54.0); HEMOGLOBIN 10.1 g/dL (13.5-17.5); IMMATURE GRANULOCYTES 0.4 % (0-5); LYMPHOCYTES 12.8 % (15-50); MCH 31.6 pg (26.0-34.0); MCHC 32.8 g/dL (31.0-37.0); MCV 96.3 fL (80.0-100.0); MEAN PLATELET VOLUME 10.6 fL (7.4-10.4); MONOCYTES 10.5 % (2-11); NEUTROPHILS 75.4 % (40-80); PLATELET COUNT 251 10x3/uL (130-400); RDW 15.3 % (11.5-14.5); WBC 7.4 10x3/uL (4.8-10.8)
[2017-01-20 05:24] LABS: INR 2.43 (0.85-1.17); PROTIME 26.6 SECONDS (11.6-15.0)
[2017-01-20 05:41] LABS: ANION GAP 9.9 mmol/L (8-16); CALCIUM 8.6 mg/dL (8.5-10.1); CARBON DIOXIDE 30.7 mmol/L (21.0-32.0); CREATININE - SERUM 1.9 mg/dL (0.6-1.3); POTASSIUM - SERUM 3.6 mmol/L (3.5-5.1)
--- NOTE | 2017-01-20 07:51 | NUR ---
AM ROUNDING- RECEIVED REPORT FROM OILSEED MEAT PRESSER NURSE TY. PT IS CURRENTLY LAYING IN BED ON BACK WITH EYES OPEN RECEIVING A BREATHING TREATMENT. FAMILY MEMBER IS AT BEDSIDE. ON ROOM AIR. ON MONITOR SHOWING SR, HR 92 (PER KEVIN WITH TELEMETRY). IV SEEN TO LEFT HAND THAT IS CURRENTLY SALINE LOCKED. NO NEED AT CURRENT TIME. WILL CONTINUE TO MONITOR AND CONTINUE WITH PLAN OF CARE.
[2017-01-20 08:19] VITALS: BP 120/65
[2017-01-20 12:18] VITALS: BP 115/56
--- NOTE | 2017-01-20 12:23 | NUR ---
CADEN MARTINEZ OBTAINED PTS WEIGHT ORDERED. STANDING WEIGHT IS 196.0.
[2017-01-20 15:47] VITALS: BP 117/65
--- NOTE | 2017-01-20 18:31 | NUR ---
PT IS CURRENTLY LAYING IN BED ON BACK WITH EYES CLOSED RESTING. IS AT BEDSIDE. NO NEED AT CURRENT TIME. WILL CONTINUE TO MONITOR.
--- NOTE | 2017-01-20 19:30 | NUR ---
RECEIVED REPORT, FAMILY AT BEDSIDE, DENIES ANY NEEDS, BED IS LOW, SRX2,GAVE PT URINAL TO KEEP UP WITH OUTPUT, CALL LIGHT IN REACH, WILL CONTINUE PLAN OF CARE
[2017-01-20 22:32] VITALS: BP 114/63
[2017-01-21 00:42] VITALS: BP 114/59
--- NOTE | 2017-01-21 03:56 | NUR ---
ANNABELLE MCDUFFIE THAT WASNT GIVE AT 1830
--- NOTE | 2017-01-21 04:56 | NUR ---
ASSESSMENT COMPLETE, SEE FLOWSHEET, IV RESITED TO L UPPER ARM BY MIKIE RN, FAMILY AT BEDSIDE, PT SLEEPING, CALL LIGHT IN REACH, WILL CONTINUE TO MONITOR
[2017-01-21 05:11] LABS: BASOPHILS 0.1 % (0-2); EOSINOPHILS 0.9 % (0-7); HEMATOCRIT 29.6 % (42.0-54.0); IMMATURE GRANULOCYTES 0.2 % (0-5); LYMPHOCYTES 11.1 % (15-50); MCH 32.2 pg (26.0-34.0); MCHC 33.8 g/dL (31.0-37.0); MCV 95.2 fL (80.0-100.0); MEAN PLATELET VOLUME 10.2 fL (7.4-10.4); MONOCYTES 10.3 % (2-11); NEUTROPHILS 77.4 % (40-80); PLATELET COUNT 235 10x3/uL (130-400); RBC 3.11 10x6/uL (4.20-6.10); RDW 15.3 % (11.5-14.5); WBC 8.2 10x3/uL (4.8-10.8)
[2017-01-21 05:28] LABS: INR 2.74 (0.85-1.17); PROTIME 29.2 SECONDS (11.6-15.0)
[2017-01-21 05:35] LABS: ANION GAP 10.4 mmol/L (8-16); CALCIUM 8.7 mg/dL (8.5-10.1); CARBON DIOXIDE 31.5 mmol/L (21.0-32.0); CREATININE - SERUM 1.8 mg/dL (0.6-1.3); POTASSIUM - SERUM 3.9 mmol/L (3.5-5.1)
[2017-01-21 06:10] VITALS: BP 160/80
--- NOTE | 2017-01-21 07:12 | NUR ---
AM ROUNDING- RECEIVED REPORT FROM WOODWORKER HELPER NURSE MAX. PT IS CURRENTLY LAYING IN BED ON BACK RECEIVING A BREATHING TX. AND DAUGHTER ARE AT BEDSIDE. ON 02 AT 2L VIA NC. ON MONITOR SHOWING A-FLUTTER/ UNCONTROLLED A-FIB, HR 101 (PT HAS BEEN RUNNING THIS ON MONITOR PER KEVIN WITH TELEMETRY). IV SEEN TO LEFT UPPER ARM WITH DOBUTAMINE RUNNING AT 13.5CC. NO NEED AT CURRENT TIME. WILL CONTINUE TO MONITOR AND CONTINUE WITH PLAN OF CARE.
[2017-01-21 08:00] VITALS: BP 121/58
[2017-01-21 11:55] VITALS: BP 95/62
[2017-01-21 15:49] VITALS: BP 120/66
--- NOTE | 2017-01-21 18:20 | NUR ---
PT IS CURRENTLY LAYING IN BED ON BACK WITH EYES OPEN RESTING. PT JUST GOT BACK FROM CT SCAN. DR. MISHRA IS NOW IN ROOM MAKING ROUNDS. IS AT BEDSIDE. NO NEED AT CURRENT TIME. WILL CONTINUE TO MONITOR.
[2017-01-21 19:00] VITALS: BP 109/63
--- NOTE | 2017-01-21 19:30 | NUR ---
RECEIVED REPORT, AT BEDSIDE, 02-2L, IV-L. UPPER ARM-SL, [id number], PT DENIES ANY NEEDS AT THIS TIME, WILL CONTINUE PLAN OF CARE. CALL LIGHT IN REACH,
--- NOTE | 2017-01-21 20:51 | NUR ---
[id number] 8 UNITS
--- NOTE | 2017-01-22 00:31 | NUR ---
PT DAUGHTER CAME OUT SAID PT WAS HOT AND CLAMY, CHECK BLOODSUGAR WAS 43, GAVE OJ AND APPLE JUCIE, CRACKERS AND PEANUT BUTTER
--- NOTE | 2017-01-22 00:54 | NUR ---
RECHECK BLOODSUGAR WAS STILL 43, GAVE 25ML OF D50, WILL RECHECK IN 30MIN
--- NOTE | 2017-01-22 01:36 | NUR ---
RECHECK BLOODSUGAR WAS 87
--- NOTE | 2017-01-22 03:06 | NUR ---
DIRECT SUPPORT WORKER AT BEDSIDE TO OBTAIN VITALS, CALL LIGHT IN REACH. WILL CONTINUE WITH PLAN OF CARE.
[2017-01-22 04:00] VITALS: BP 117/63
--- NOTE | 2017-01-22 04:03 | NUR ---
ASSESSMENT COMPLETE, SEE FLOWSHEET, PT RESTING, NO DISTRESS NOTICED, DAUGHTER AT BEDSIDE, CALL LIGHT IN REACH, WILL CONTINUE TO MONITOR
[2017-01-22 06:46] LABS: BASOPHILS 0.1 % (0-2); EOSINOPHILS 0.4 % (0-7); HEMATOCRIT 30.5 % (42.0-54.0); HEMOGLOBIN 10.1 g/dL (13.5-17.5); IMMATURE GRANULOCYTES 0.2 % (0-5); LYMPHOCYTES 8.9 % (15-50); MCH 31.3 pg (26.0-34.0); MCHC 33.1 g/dL (31.0-37.0); MCV 94.4 fL (80.0-100.0); MEAN PLATELET VOLUME 10.2 fL (7.4-10.4); MONOCYTES 8.8 % (2-11); NEUTROPHILS 81.6 % (40-80); PLATELET COUNT 223 10x3/uL (130-400); RBC 3.23 10x6/uL (4.20-6.10); WBC 8.3 10x3/uL (4.8-10.8)
[2017-01-22 07:04] LABS: INR 4.08 (0.85-1.17); PROTIME 40.1 SECONDS (11.6-15.0)
[2017-01-22 07:30] LABS: ANION GAP 10.2 mmol/L (8-16); CALCIUM 8.7 mg/dL (8.5-10.1); CARBON DIOXIDE 30.6 mmol/L (21.0-32.0); CREATININE - SERUM 1.9 mg/dL (0.6-1.3); POTASSIUM - SERUM 3.8 mmol/L (3.5-5.1)
--- NOTE | 2017-01-22 07:37 | NUR ---
AM ROUNDING- PT IS CURRENTLY LAYING IN BED ON BACK WITH EYES OPEN RESTING. DAUGHTER IS AT BEDSIDE. ON 02 AT 2L VIA NC. ON MONITOR SHOWING CONTROLLED A-FIB, HR 84 (PER KEVIN WITH TELEMETRY). IV SEEN TO LEFT UPPER ARM THAT IS CURRENTLY SALINE LOCKED. NO NEED AT CURRENT TIME. WILL CONTINUE TO MONITOR AND CONTINUE WITH PLAN OF CARE.
[2017-01-22 07:44] LABS: % SATURATION 9 % (15-55); IRON 20 ug/dl (35-150); TOTAL IRON BIND CAPACITY 209 ug/dl (260-445); UNSAT IRON BIND CAPACITY 189 ug/dl (150-375)
[2017-01-22 08:01] LABS: ERYTHROCYTE SEDIMENTATION RATE 56 mm/hr (0-20)
[2017-01-22 08:30] VITALS: BP 115/60
[2017-01-22 12:30] VITALS: BP 105/61
--- NOTE | 2017-01-22 13:17 | NUR ---
Nutrition follow-up: Diet: ADA consistent CHO PO intake~60% average of meals labs reviewed +BM Wt: 197# RDN following.
[2017-01-22 16:00] VITALS: BP 106/63
--- NOTE | 2017-01-22 18:22 | NUR ---
PT IS CURRENTLY LAYING IN BED ON BACK WITH EYES OPEN RESTING. AND DAUGHTER ARE AT BEDSIDE. NO NEED AT CURRENT TIME. WILL CONTINUE TO MONITOR.
[2017-01-22 19:00] VITALS: BP 107/57
--- NOTE | 2017-01-22 19:30 | NUR ---
RECEIVED REPORT, FAMILY AT BEDSIDE, DENIES ANY NEEDS, BED IS LOW, SRX2, BOX ALARM ON, WILL CONTINUE PLAN OF CARE
--- NOTE | 2017-01-23 03:51 | NUR ---
ASSESSMENT COMPLETE, PT IS ACHS, 02-2L, IV-L. [id number], ELECTOLYTE PROTOCOL, [id number], FAMILY AT BEDSIDE, BED IS LOW, SRX-2, BOX ALARM IS ON, WILL CONTINUE PLAN OF CARE
[2017-01-23 04:00] VITALS: BP 113/69
[2017-01-23 06:49] LABS: BASOPHILS 0.1 % (0-2); EOSINOPHILS 0.9 % (0-7); HEMATOCRIT 30.5 % (42.0-54.0); HEMOGLOBIN 10.2 g/dL (13.5-17.5); IMMATURE GRANULOCYTES 0.2 % (0-5); LYMPHOCYTES 10.5 % (15-50); MCH 31.4 pg (26.0-34.0); MCHC 33.4 g/dL (31.0-37.0); MCV 93.8 fL (80.0-100.0); MEAN PLATELET VOLUME 9.8 fL (7.4-10.4); MONOCYTES 9.7 % (2-11); NEUTROPHILS 78.6 % (40-80); PLATELET COUNT 241 10x3/uL (130-400); RBC 3.25 10x6/uL (4.20-6.10); RDW 14.8 % (11.5-14.5); WBC 9.1 10x3/uL (4.8-10.8)
--- NOTE | 2017-01-23 07:00 | NUR ---
PT WAS RECEIVED AT THE BEGINNING OF THIS SHIFT IN BED AWAKE AND ORIENTED X 3. AT BEDSIDE IN CHAIR. NO VOICED COMPLAINTS OR NEEDS AT THIS TIME. STABLE CONDITION OBSERVED. LEFT UPPER ARM IV THAT HAS NS INFUSING VIA PUMP AT 10ML'S/HR. 02 PER NC GOING AT 2L/MIN. WILL BE MONITORING PT. THROUGH THIS SHIFT AND ASSISTING PRN WITH ADL'S.
[2017-01-23 07:05] LABS: ALBUMIN 2.5 g/dL (3.4-5.0); ANION GAP 10.2 mmol/L (8-16); BILIRUBIN - TOTAL 1.39 mg/dL (0.2-1.3); CALCIUM 8.7 mg/dL (8.5-10.1); CARBON DIOXIDE 29.7 mmol/L (21.0-32.0); CREATININE - SERUM 1.8 mg/dL (0.6-1.3); POTASSIUM - SERUM 3.9 mmol/L (3.5-5.1); PROTEIN - SERUM 6.7 g/dL (6.4-8.2)
[2017-01-23 07:19] LABS: INR 3.47 (0.85-1.17); PROTIME 35.3 SECONDS (11.6-15.0)
[2017-01-23 07:23] LABS: IMMUNOGLOBULIN E 557 IU/mL (0-100)
[2017-01-23 08:54] VITALS: BP 105/54
[2017-01-23 12:00] VITALS: BP 104/59
--- NOTE | 2017-01-23 15:28 | NUR ---
PT UP TO BATHROOM AD MAYCO WITH ASSIST FROM STAFF OR . NO SIGNS OF DISCOMFORT OR DISTRESS. VITAL SIGNS STABLE.
[2017-01-23 16:59] VITALS: BP 115/66
[2017-01-23 19:00] VITALS: BP 110/62
--- NOTE | 2017-01-23 19:30 | NUR ---
RECEIVED REPORT, AT BEDSIDE, EXPLAINED CHANGED INSULIN SCALE, WANT TO KEEP BLOODSUGAR UNDER 150,SHE WAS REFUSING INSULIN BECAUSE WAS AFRAID HE WOULD BOTTOM OUT, BED IS LOW, SRX2, BOX ALARM IS ON, CALL LIGHT IN REACH, WILL CONTINUE PLAN OF CARE
[2017-01-24] VITALS: BP 121/68
--- NOTE | 2017-01-24 03:57 | NUR ---
ASSESSMENT COMPLETE, SEE FLOWSHEET, PT IS WAKE VISITING WITH DAUGHTER, DENIES ANY NEEDS AT THIS TIME, BED IS LOW, SRX2, BOX ALARM IS ON,WILL CONTINUE PLAN OF CARE
[2017-01-24 04:00] VITALS: BP 114/64
--- NOTE | 2017-01-24 04:42 | NUR ---
RESTING IN BED WITH NO DISTRESS. CPOC.
[2017-01-24 05:21] LABS: BASOPHILS 0.1 % (0-2); EOSINOPHILS 1.7 % (0-7); HEMATOCRIT 30.4 % (42.0-54.0); IMMATURE GRANULOCYTES 0.4 % (0-5); LYMPHOCYTES 11.8 % (15-50); MCH 30.9 pg (26.0-34.0); MCHC 32.9 g/dL (31.0-37.0); MCV 93.8 fL (80.0-100.0); MEAN PLATELET VOLUME 10.5 fL (7.4-10.4); MONOCYTES 10.7 % (2-11); NEUTROPHILS 75.3 % (40-80); PLATELET COUNT 275 10x3/uL (130-400); RBC 3.24 10x6/uL (4.20-6.10); RDW 14.9 % (11.5-14.5); WBC 7.5 10x3/uL (4.8-10.8)
[2017-01-24 05:24] LABS: INR 2.96 (0.85-1.17); PROTIME 31.1 SECONDS (11.6-15.0)
[2017-01-24 05:47] LABS: ALBUMIN 2.3 g/dL (3.4-5.0); BILIRUBIN - TOTAL 1.16 mg/dL (0.2-1.3); CALCIUM 8.6 mg/dL (8.5-10.1); CARBON DIOXIDE 29.8 mmol/L (21.0-32.0); CREATININE - SERUM 1.8 mg/dL (0.6-1.3); POTASSIUM - SERUM 3.8 mmol/L (3.5-5.1); PROTEIN - SERUM 6.4 g/dL (6.4-8.2)
--- NOTE | 2017-01-24 07:05 | NUR ---
RECEIVED REPORT. ASSUMED CARE OF PATIENT. CALL LIGHT WITHIN REACH. PATIENT RECIEVING NEBULIZER TREATMENT AT THIS TIME. DENIES NEEDS. IV FLUIDS INFUSING AT KVO. PATIENTS DAUGHTER AT BEDSIDE. BOX ALARM ATTACHED AND PATENT. NO DISTRESS.
[2017-01-24 08:00] VITALS: BP 117/68
--- NOTE | 2017-01-24 11:30 | NUR ---
FSBS 214. 4 UNITS INSULIN ADMINISTERED PER SLIDING SCALE ORDERED. NO DISTRESS. FAMILY AT BEDSIDE. DENIES NEEDS.
[2017-01-24 12:00] VITALS: BP 117/74
[2017-01-24 16:00] VITALS: BP 101/68
--- NOTE | 2017-01-24 16:23 | NUR ---
FSBS 176. PATIENT REFUSED INSULIN AT THIS TIME. PATIENT AFFRAID INSULIN WILL BOTTOM HIS BLOOD SUGAR OUT AGAIN IT DID WHEN ON A HIGHER SLIDING SCALE. INFOMRED PATIENT HIS FSBS WILL BE RECHECKED AT 2100. FAMILY AT BEDSIDE.
[2017-01-24 19:00] VITALS: BP 126/74
--- NOTE | 2017-01-24 20:05 | NUR ---
RECEIVED REPORT, DAUGHTERS AT BEDSIDE, PLACE HAT IN TOLIET FOR STOOL SAMPLE, GAVE NEW URINAL FOR UA, DENIES ANY NEEDS AT THIS TIME, CALL LIGHT IN REACH, WILL CONTINUE PLAN OF CARE
[2017-01-25] VITALS: BP 158/71
--- NOTE | 2017-01-25 03:43 | NUR ---
WARNING ANALYST AT BEDSIDE FOR VS. NEEDS ADDRESSED AT THIS TIME. CALL LIGHT IN REACH. WILL CONT TO MONITOR.
--- NOTE | 2017-01-25 03:44 | NUR ---
ASSESSMENT COMPLETE, PT IS ACHS, 02-2L, L. UPPER ARM-NS @10, [id number], REDNESS TO BOTTOM, URINE AND SLOOL SAMPLES COLLECTED, BED IS LOW, SRX2, BOX ALARM IS ON, REFUSING SCD, CALL LIGHT IN REACH, DAUGHTER AT BEDSIDE, WILL CONTINUE PLAN OF CARE
[2017-01-25 04:00] VITALS: BP 121/62
[2017-01-25 05:32] LABS: BASOPHILS 0.1 % (0-2); EOSINOPHILS 1.7 % (0-7); HEMATOCRIT 31.7 % (42.0-54.0); HEMOGLOBIN 10.5 g/dL (13.5-17.5); IMMATURE GRANULOCYTES 0.5 % (0-5); MCH 31.1 pg (26.0-34.0); MCHC 33.1 g/dL (31.0-37.0); MCV 93.8 fL (80.0-100.0); MEAN PLATELET VOLUME 9.9 fL (7.4-10.4); MONOCYTES 10.9 % (2-11); NEUTROPHILS 74.8 % (40-80); PLATELET COUNT 289 10x3/uL (130-400); RBC 3.38 10x6/uL (4.20-6.10); WBC 8.8 10x3/uL (4.8-10.8)
[2017-01-25 05:52] LABS: PROTIME 25.2 SECONDS (11.6-15.0)
[2017-01-25 05:54] LABS: INR 2.28 (0.85-1.17)
[2017-01-25 06:16] LABS: ALBUMIN 2.5 g/dL (3.4-5.0); ANION GAP 9.1 mmol/L (8-16); BILIRUBIN - TOTAL 1.23 mg/dL (0.2-1.3); CALCIUM 8.9 mg/dL (8.5-10.1); CARBON DIOXIDE 32.6 mmol/L (21.0-32.0); CREATININE - SERUM 1.8 mg/dL (0.6-1.3); POTASSIUM - SERUM 3.7 mmol/L (3.5-5.1)
--- NOTE | 2017-01-25 07:21 | NUR ---
AM ROUNDING- RECEIVED REPORT FROM ENGINE MONITOR NURSE MAX. PT IS CURRENTLY LAYING IN BED ON BACK WITH EYES OPEN RESTING. FAMILY MEMBER IS AT BEDSIDE. ON 02 AT 2L VIA NC. ON MONITOR SHOWING A-FLUTTER, HR 87 (PER KEVIN IN TELEMETRY). IV SEEN TO LEFT UPPER ARM WITH NS RUNNING AT 10CC. NO NEED AT CURRENT TIME. WILL CONTINUE TO MONITOR AND CONTINUE WITH PLAN OF CARE.
[2017-01-25 07:52] VITALS: BP 105/59
[2017-01-25 10:12] LABS: ANTI-GLOMERULAR BASMENT MEMBRN 4 units (0-20)
[2017-01-25 11:13] LABS: ANA REFLEX - DIRECT Negative (Negative)
[2017-01-25 11:56] VITALS: BP 99/67
--- NOTE | 2017-01-25 13:03 | NUR ---
Nutrition follow-up: Diet: Mechanical soft low sodium PO intake ~60% average of meals Labs reviewed +BM Wt: 176# RDN following.
[2017-01-25 13:13] LABS: ANGIOTENSIN CONVERTING ENZYME 21 U/L (14-82)
[2017-01-25 16:13] LABS: ANCA - ANTIMYELOPEROXIDASE <9.0 U/mL (0.0-9.0); ANCA - ANTIPROTEINASE 3 <3.5 U/mL (0.0-3.5); ANCA - ATYPICAL <1:20 titer (Neg:<1:20); ANCA - CYTOPLASMIC <1:20 titer (Neg:<1:20); ANCA - PERINUCLEAR <1:20 titer (Neg:<1:20)
[2017-01-25 16:14] VITALS: BP 117/69
--- NOTE | 2017-01-25 18:17 | NUR ---
PT IS CURRENTLY SITTING UP IN BED WITH EYES OPEN RESTING. IS AT BEDSIDE. NO NEED AT CURRENT TIME. WILL CONTINUE TO MONITOR.
--- NOTE | 2017-01-25 19:20 | NUR ---
HIS IS PUSHING HIM IN WC IN HALLWAY. DENIES PAIN OR ANY NEEDS. IV IN L UA INTACT SL. STATED WILL LET ME KNOW WHEN RETURN TO ROOM.
--- NOTE | 2017-01-25 21:40 | NUR ---
ADMIN SCHED MEDS. REFUSED MIRALAX AND COLACE, STATING HE HAS BEEN HAVING LOOSE STOOLS TODAY. EMPTIED URINAL 600 CC. DENIES ANY NEEDS. HIS DAUGHTER IS STAYING IN ROOM. NO QUESTIONS OR CONCERNS VOICED.
[2017-01-26] VITALS: BP 106/55
[2017-01-26 03:08] LABS: MYCOPLASMA PNEUMO IGG 128 U/mL (0-99)
[2017-01-26 04:00] VITALS: BP 120/62
--- NOTE | 2017-01-26 05:30 | NUR ---
AWAKE. DENIES ANY NEEDS.
[2017-01-26 05:38] LABS: BASOPHILS 0.1 % (0-2); EOSINOPHILS 2.3 % (0-7); HEMATOCRIT 31.5 % (42.0-54.0); HEMOGLOBIN 10.6 g/dL (13.5-17.5); IMMATURE GRANULOCYTES 0.3 % (0-5); LYMPHOCYTES 15.3 % (15-50); MCH 31.3 pg (26.0-34.0); MCHC 33.7 g/dL (31.0-37.0); MCV 92.9 fL (80.0-100.0); MEAN PLATELET VOLUME 9.8 fL (7.4-10.4); MONOCYTES 10.6 % (2-11); NEUTROPHILS 71.4 % (40-80); PLATELET COUNT 297 10x3/uL (130-400); RBC 3.39 10x6/uL (4.20-6.10); RDW 14.6 % (11.5-14.5)
[2017-01-26 05:55] LABS: PROTIME 20.6 SECONDS (11.6-15.0)
[2017-01-26 05:57] LABS: ALBUMIN 2.4 g/dL (3.4-5.0); ANION GAP 8.7 mmol/L (8-16); BILIRUBIN - TOTAL 1.2 mg/dL (0.2-1.3); CALCIUM 8.8 mg/dL (8.5-10.1); CARBON DIOXIDE 32.3 mmol/L (21.0-32.0); CREATININE - SERUM 1.8 mg/dL (0.6-1.3); PROTEIN - SERUM 6.9 g/dL (6.4-8.2)
[2017-01-26 05:58] LABS: INR 1.77 (0.85-1.17)
--- NOTE | 2017-01-26 07:15 | NUR ---
RECEIVED REPORT. ASSUMED CARE OF PATIENT. CALL LIGHT WITHIN REACH. DENIES NEEDS. PATIENT WITH NEBULIZER TX AT THIS TIME. RESP EVEN AND UNLABORED. PATIENTS AT BEDSIDE. NO DISTRESS.
[2017-01-26 08:00] VITALS: BP 112/65
--- NOTE | 2017-01-26 11:57 | NUR ---
FSBS 280. 6 UNITS HUMALOG ADMINISTERED PER SLIDING SCALE. NO DISTRESS. CONSUMING NOON MEAL AT THIS TIME.
[2017-01-26 12:00] VITALS: BP 107/75
[2017-01-26 16:00] VITALS: BP 108/67
--- NOTE | 2017-01-26 17:22 | NUR ---
FSBS 249. 4 UNITS HUMALOG ADMINISTERED PER SLIDING SCALE AT THIS TIME. PATIENT CONSUMING PM MEAL AT THIS TIME. NO DISTRESS.
[2017-01-26 19:00] VITALS: BP 105/69
--- NOTE | 2017-01-26 19:25 | NUR ---
ALERT/AWAKE. DENIES PAIN OR ANY NEEDS. IV IN L UA WITH NS INFUSING AT 30ML/HR. TELEMETRY LEADS IN PLACE, SHOW 101 ATRIAL FLUTTER ON MONITOR. FAMILY MEMBER PRESENT IN ROOM. STATED HE HAD AMBULATED TO BATHROOM TO VOID. NO QUESTIONS OR CONCERNS VOICED.
--- NOTE | 2017-01-26 21:35 | NUR ---
ADMIN SCHED MEDS AND 6 UNITS HUMALOG FOR BS 253. DENIES ANY NEEDS. HIS DAUGHTER IS STAYING THE NIGHT.
[2017-01-27] VITALS: BP 178/67
[2017-01-27 04:00] VITALS: BP 110/59
[2017-01-27 05:27] LABS: INR 1.46 (0.85-1.17); PROTIME 17.6 SECONDS (11.6-15.0)
[2017-01-27 05:48] LABS: BASOPHILS 0.1 % (0-2); EOSINOPHILS 2.2 % (0-7); HEMATOCRIT 31.5 % (42.0-54.0); HEMOGLOBIN 10.6 g/dL (13.5-17.5); IMMATURE GRANULOCYTES 0.6 % (0-5); LYMPHOCYTES 14.4 % (15-50); MCH 31.2 pg (26.0-34.0); MCHC 33.7 g/dL (31.0-37.0); MCV 92.6 fL (80.0-100.0); MEAN PLATELET VOLUME 9.9 fL (7.4-10.4); MONOCYTES 10.2 % (2-11); NEUTROPHILS 72.5 % (40-80); PLATELET COUNT 319 10x3/uL (130-400); RDW 14.6 % (11.5-14.5); WBC 9.6 10x3/uL (4.8-10.8)
[2017-01-27 05:53] LABS: ALBUMIN 2.4 g/dL (3.4-5.0); ANION GAP 12.1 mmol/L (8-16); BILIRUBIN - TOTAL 1.2 mg/dL (0.2-1.3); CALCIUM 8.5 mg/dL (8.5-10.1); CARBON DIOXIDE 31.4 mmol/L (21.0-32.0); CREATININE - SERUM 1.8 mg/dL (0.6-1.3); POTASSIUM - SERUM 4.5 mmol/L (3.5-5.1); PROTEIN - SERUM 6.5 g/dL (6.4-8.2)
[2017-01-27 07:00] VITALS: BP 105/60
--- NOTE | 2017-01-27 10:22 | NUR ---
IV PATENT. AT BS. CALL LIGHT IN REACH. WILL CONT. PLAN OF CARE.
[2017-01-27 12:00] VITALS: BP 102/48
[2017-01-27 16:00] VITALS: BP 102/55
--- NOTE | 2017-01-27 17:44 | NUR ---
PT RESTING IN BED WITH EYES OPEN CALL LIGHT IN REACH NO PROBLEMS WILL MONITER
[2017-01-27 19:00] VITALS: BP 119/64
--- NOTE | 2017-01-27 23:06 | NUR ---
NURSE ROUNDS 21:30 - PT LYING IN BED, AWAKE, ALERT, ORIENTED, DAUGHTER AT BEDSIDE. PT DENIES ANY NEEDS. CONTINUE TO MONITOR CLOSELY. BED LOW, CALL LIGHT IN REACH, SIDE RAILS X 2, HOB 30 DEGREES.
[2017-01-28] VITALS: BP 100/61
[2017-01-28 04:00] VITALS: BP 116/66
[2017-01-28 05:30] LABS: INR 1.41 (0.85-1.17); PROTIME 17.1 SECONDS (11.6-15.0)
[2017-01-28 07:46] LABS: BASOPHILS 0.1 % (0-2); EOSINOPHILS 1.9 % (0-7); HEMATOCRIT 31.2 % (42.0-54.0); HEMOGLOBIN 10.6 g/dL (13.5-17.5); IMMATURE GRANULOCYTES 0.8 % (0-5); LYMPHOCYTES 13.7 % (15-50); MCH 31.1 pg (26.0-34.0); MCV 91.5 fL (80.0-100.0); MEAN PLATELET VOLUME 9.9 fL (7.4-10.4); MONOCYTES 10.5 % (2-11); PLATELET COUNT 339 10x3/uL (130-400); RBC 3.41 10x6/uL (4.20-6.10); RDW 14.7 % (11.5-14.5); WBC 9.4 10x3/uL (4.8-10.8)
[2017-01-28 07:52] LABS: MAGNESIUM - SERUM 1.7 mg/dL (1.8-2.4); PHOSPHOROUS 3.3 mg/dL (2.5-4.9); POTASSIUM - SERUM 4.3 mmol/L (3.5-5.1)
[2017-01-28 08:57] VITALS: BP 128/65
--- NOTE | 2017-01-28 09:23 | NUR ---
PT SITTING UP IN BED WITH AT BEDSIDE, DENIES ANY NEEDS AT THIS TIME. WILL CONT TO MONITOR
[2017-01-28 12:13] VITALS: BP 120/68
--- NOTE | 2017-01-28 13:29 | NUR ---
PT SITTING UP IN BED WATCHING TV AT BEDSIDE. PT HERE TO WORK WITH PT WILL CONT TO MONITOR
[2017-01-28 15:59] VITALS: BP 108/57
--- NOTE | 2017-01-28 18:50 | NUR ---
PT SITTING UP IN BED WITH AT BEDSIDE. DENIES ANY NEEDS.
[2017-01-28 19:00] VITALS: BP 111/63
--- NOTE | 2017-01-28 22:07 | NUR ---
NURSE ROUNDS 21:30 - PT AWAKE, ALERT, ORIENTED, LYING IN BED, HOB 30 DEGREES, FAMILY AT BEDSIDE. PT STATES HE FELT GOOD TODAY, WALKED AROUND THE UNIT WITHOUT ANY DIFFICULTY AND IS READY TO GO HOME. PT DENIES ANY NEEDS. CONTINUE TO MONITOR CLOSELY.
[2017-01-29] VITALS: BP 121/56
[2017-01-29 04:00] VITALS: BP 128/73
[2017-01-29 05:52] LABS: BASOPHILS 0.2 % (0-2); EOSINOPHILS 2.2 % (0-7); HEMATOCRIT 31.6 % (42.0-54.0); HEMOGLOBIN 10.7 g/dL (13.5-17.5); IMMATURE GRANULOCYTES 0.8 % (0-5); LYMPHOCYTES 15.7 % (15-50); MCHC 33.9 g/dL (31.0-37.0); MCV 91.6 fL (80.0-100.0); MEAN PLATELET VOLUME 9.5 fL (7.4-10.4); MONOCYTES 10.8 % (2-11); NEUTROPHILS 70.3 % (40-80); PLATELET COUNT 337 10x3/uL (130-400); RBC 3.45 10x6/uL (4.20-6.10); RDW 14.6 % (11.5-14.5); WBC 9.1 10x3/uL (4.8-10.8)
[2017-01-29 06:07] LABS: INR 1.49 (0.85-1.17)
[2017-01-29 06:11] LABS: ANION GAP 9.1 mmol/L (8-16); CALCIUM 9.2 mg/dL (8.5-10.1); CREATININE - SERUM 1.8 mg/dL (0.6-1.3); MAGNESIUM - SERUM 1.7 mg/dL (1.8-2.4); PHOSPHOROUS 3.3 mg/dL (2.5-4.9); POTASSIUM - SERUM 4.1 mmol/L (3.5-5.1)
--- NOTE | 2017-01-29 06:32 | NUR ---
PT AWAKE, ALERT, ORIENTED, WANTING TO GO HOME TODAY. DENIES ANY NEEDS. FAMILY AT BEDSIDE. CONTINUE TO MONITOR.
--- NOTE | 2017-01-29 07:25 | NUR ---
PT LAYING FLAT IN BED SLEEPING NO S/S DISTRESS NOTED. RR EVEN AND UNLABORED. WILL CONT TO MONITOR
--- NOTE | 2017-01-29 07:33 | NUR ---
PT AWAKE IN BED, FAMILY AT BEDSIDE. 250CC OF URINE EMPTIED FROM URINAL. DENIES ANY NEEDS AT THIS TIME CALL LIGHT IS IN REACH
[2017-01-29 08:58] VITALS: BP 114/63
--- NOTE | 2017-01-29 10:44 | NUR ---
PT LEFT ARM IV IS RED, INDURATED AND INFILTRATED. IV REMOVED WITH CATH INTACT NO IV MEDS DUE TODAY AT THIS TIME FAMILY IS WANTING A D/C AND DO NOT WANT IV PLACED AT THIS TIME. FAMILY AT BEDSIDE CALL LIGHT WITHIN REACH
[2017-01-29 12:00] VITALS: BP 112/65
[2017-01-29 17:13] VITALS: BP 96/51
[2017-01-29 19:00] VITALS: BP 101/61
--- NOTE | 2017-01-29 23:46 | NUR ---
PT RESTING WELL WITHOUT C/O OR DISTRESS NOTED. NO CHANGES NOTED IN ASSESSMENT. CALL LIGHT WITHIN REACH. WILL CONT TO MONITOR.
--- NOTE | 2017-01-30 01:57 | NUR ---
RESTING WITH EYES CLOSED, RESPERATIONS EVEN, NO S/S DISTRESS NOTED.
[2017-01-30 04:00] VITALS: BP 119/71
[2017-01-30 05:52] LABS: BASOPHILS 0.1 % (0-2); HEMATOCRIT 32.7 % (42.0-54.0); IMMATURE GRANULOCYTES 1.4 % (0-5); LYMPHOCYTES 18.6 % (15-50); MCH 30.8 pg (26.0-34.0); MCHC 33.6 g/dL (31.0-37.0); MCV 91.6 fL (80.0-100.0); MEAN PLATELET VOLUME 9.6 fL (7.4-10.4); MONOCYTES 9.8 % (2-11); NEUTROPHILS 67.1 % (40-80); PLATELET COUNT 336 10x3/uL (130-400); RBC 3.57 10x6/uL (4.20-6.10); RDW 14.5 % (11.5-14.5); WBC 9.1 10x3/uL (4.8-10.8)
[2017-01-30 06:11] LABS: ANION GAP 11.8 mmol/L (8-16); CALCIUM 8.8 mg/dL (8.5-10.1); CARBON DIOXIDE 31.6 mmol/L (21.0-32.0); CREATININE - SERUM 1.8 mg/dL (0.6-1.3); MAGNESIUM - SERUM 1.9 mg/dL (1.8-2.4); PHOSPHOROUS 3.6 mg/dL (2.5-4.9); POTASSIUM - SERUM 4.4 mmol/L (3.5-5.1)
[2017-01-30 08:33] VITALS: BP 123/60
--- NOTE | 2017-01-30 08:35 | NUR ---
PT EATING BREAKFAST IN BED HOB 45, MORNING MEDS GIVEN.FAMILY IN ROOM NO S/S OF DISTESS DENIES ANY NEEDS AT THIS TIME WILL CONTINUE TO MONITOR
[2017-01-30 11:07] VITALS: BP 117/67
[2017-01-30 16:00] VITALS: BP 106/56
--- NOTE | 2017-01-30 16:20 | NUR ---
LATE ENTRY 0950 DEBBIE WAS NOTIFIED BY STAFF NURSE THAT THE PATIENT'S WANTED TO SPEAK WITH THE CIVIL CAD TECH ABOUT DISCHARGE PLANNING. CM REVIEWED THE NOTES. INITIAL PLAN WAS FOR HOME W/ HOME HEALTH. THE FEELS HE IS WEAKER THAN HE HAD BEEN AND IS REQUESTING REHAB. DISCUSSED ACUTE VS SKILLED REHAB. SHE PREFERS ACUTE . WILL REQUEST AN EVALUATION. DISCUSSED SNF REHAB. ADVISED HER TO VISIT A COUPLE OF FACILITIES THIS WEEKEND. EXPLAINED THE OFFICE PERSONNEL WOULD NOT BE AVAILABLE HOWEVER SHE WOULD GET TO SEE THE FACILITIES. CM WILL ALSO TOUCH BASE WITH THE HOME HEALTH. PATIENT'S DAUGHTER ENTERED THE JUST PRIOR TO THE CM LEAVING. SHE IS ALSO AWARE OF THE OPTIONS AND AGREES.
--- NOTE | 2017-01-30 17:15 | NUR ---
Rehab Note- Acute Rehab Prescreen order received. Reviewed chart. Will visit with the patient. Will follow at this time. Thank you for this referral! Germaine Francois RN Clinical Liaison, [facility] Rehab
[2017-01-30 17:28] LABS: APPEARANCE CLEAR (CLEAR); BILIRUBIN NEGATIVE (NEGATIVE); COLOR YELLOW (YELLOW); GLUCOSE NEGATIVE (NEGATIVE); KETONE NEGATIVE (NEGATIVE); LEUKOCYTE ESTERASE NEGATIVE (NEGATIVE); NITRITE NEGATIVE (NEGATIVE); PROTEIN NEGATIVE (NEGATIVE); SPECIFIC GRAVITY 1.005 (1.005-1.020); UROBILINOGEN NORMAL (NORMAL)
--- NOTE | 2017-01-30 18:30 | NUR ---
PT SITTING UP IN BED DENIES ANY NEEDS AT BEDSIDE. URINAL EMPTIED 200 CC CLEAR YELLOW URINE.
--- NOTE | 2017-01-30 20:00 | NUR ---
PT IN BED WITH HOB UP FOR COMFORT. DAUGHTER IN ROOM. URINAL. FSBS ACHS. TELEMETRY. 02 @ 2L VIA N/C. BED IN LOWEST POSTIION AND CALL LIGHT WITHIN REACH.
--- NOTE | 2017-01-31 03:41 | NUR ---
PT LYING IN BED RESTING QUIETLY. BED IN LOWEST POSITION AND CALL LIGHT WITHIN REACH.
[2017-01-31 04:00] VITALS: BP 111/57
[2017-01-31 06:09] LABS: BASOPHILS 0.2 % (0-2); EOSINOPHILS 1.3 % (0-7); HEMATOCRIT 35.5 % (42.0-54.0); IMMATURE GRANULOCYTES 1.2 % (0-5); LYMPHOCYTES 16.4 % (15-50); MCH 31.1 pg (26.0-34.0); MCHC 33.8 g/dL (31.0-37.0); MEAN PLATELET VOLUME 9.4 fL (7.4-10.4); MONOCYTES 9.6 % (2-11); NEUTROPHILS 71.3 % (40-80); PLATELET COUNT 389 10x3/uL (130-400); RBC 3.86 10x6/uL (4.20-6.10); RDW 14.7 % (11.5-14.5); WBC 10.3 10x3/uL (4.8-10.8)
[2017-01-31 06:43] LABS: ANION GAP 10.8 mmol/L (8-16); CALCIUM 9.8 mg/dL (8.5-10.1); CARBON DIOXIDE 32.3 mmol/L (21.0-32.0); CREATININE - SERUM 1.8 mg/dL (0.6-1.3); PHOSPHOROUS 4.1 mg/dL (2.5-4.9); POTASSIUM - SERUM 4.1 mmol/L (3.5-5.1)
--- NOTE | 2017-01-31 07:58 | NUR ---
AM ROUNDS - PT IS AWAKE AND ALERT IN BED WITH SIDE RAILS UP X2, CALL HARDY IN USE/REACH. BED AT LOWEST POSITION. URINAL AT BEDSIDE. PT IN 2L VIA NC. FOIL CUTTER REPORTS THAT IV INFILTRATED LAST NIGHT. PT HAS NO IV AT THIS TIME. MONITOR SHOWING A FLUTTER, HR 113. NO FUTHER NEEDS AT THIS TIME. WILL CONTINUE TO MONITOR
[2017-01-31 11:52] VITALS: BP 98/50
--- NOTE | 2017-01-31 11:52 | NUR ---
TC to [facility]. Spoke with Andrew. Explained Mrs Grimes wanted to speak with someone regarding the type of care they would be providing at home. The is awaiting the acute rehab referral. She prefers rehab admit if he meets criteria. She states he did well in rehab 2 yrs ago after surgery. CM spoke with the and the patient at the bedside.
[2017-01-31 16:00] VITALS: BP 109/62
--- NOTE | 2017-01-31 16:21 | NUR ---
Rehab Note- Visited with the patient and his . They are very interested in [facility] IRF stay when ready for discharge from the acute hospital. Has a urology consult pending at this time. Will continue to follow at this time. Germaine Francois RN Clinical Liaison, [facility] Rehab
[2017-01-31 21:30] VITALS: BP 112/66
[2017-02-01 01:07] VITALS: BP 108/68
[2017-02-01 05:26] VITALS: BP 106/65
[2017-02-01 07:04] LABS: BASOPHILS 0.2 % (0-2); EOSINOPHILS 2.9 % (0-7); HEMATOCRIT 34.6 % (42.0-54.0); HEMOGLOBIN 11.6 g/dL (13.5-17.5); IMMATURE GRANULOCYTES 1.7 % (0-5); LYMPHOCYTES 20.3 % (15-50); MCH 30.9 pg (26.0-34.0); MCHC 33.5 g/dL (31.0-37.0); MEAN PLATELET VOLUME 9.5 fL (7.4-10.4); NEUTROPHILS 66.9 % (40-80); PLATELET COUNT 373 10x3/uL (130-400); RBC 3.76 10x6/uL (4.20-6.10); RDW 14.7 % (11.5-14.5)
[2017-02-01 07:13] LABS: INR 1.47 (0.85-1.17); PROTIME 17.8 SECONDS (11.6-15.0)
[2017-02-01 07:23] LABS: ANION GAP 8.6 mmol/L (8-16); CALCIUM 8.9 mg/dL (8.5-10.1); CARBON DIOXIDE 32.8 mmol/L (21.0-32.0); CREATININE - SERUM 1.9 mg/dL (0.6-1.3); POTASSIUM - SERUM 4.4 mmol/L (3.5-5.1)
[2017-02-01 08:00] VITALS: BP 112/61
[2017-02-01 12:00] VITALS: BP 105/46
[2017-02-01] MEDS ORDERED: FERREX 150 PLUS1 CAP PO (13:12)
[2017-02-01] MEDS ORDERED: BUMEX2 MG PO (13:13)
[2017-02-01] MEDS ORDERED: BENZONATATE200 MG PO (13:13)
[2017-02-01] MEDS ORDERED: HUMALOG 30100 UNITS/ SC (13:14)
[2017-02-01] MEDS ORDERED: COLACE100 MG PO (13:14)
--- NOTE | 2017-02-01 15:12 | NUR ---
Patient Name: JOSEPH SARAVIA Encounter No: [id number] : 1935 Primary Insurance: MEDICARE A & B Anticipated DC Date: 02-01-2017 Planned Disposition: Inpatient Rehab External Planned Provider: [facility] INPATIENT REHAB DCP follow-up note: CM SPOKE TO RONALD OF INPATIENT REHAB, THEY PLAN TO ACCEPT PT TODAY FOR REHAB. PT AND SPOUSE NOTIFIED, BOTH IN AGREEMENT WITH DISCHARGE TO INPATIENT REHAB. IMPORTANT MESSAGE FROM MEDICARE PROVIDED AND EXPLAINED. NOTIFY [facility] INPATIENT REHAB WHEN PT HAS DISCHARGE ORDER FOR INPATIENT REHAB. [facility] INPATIENT REHAB TO CONTACT MED 2 NURSE WITH ROOM NUMBER WHEN READY TO ACCEPT PT AND NURSE REPORT. Fabricio Jarvis, CASE MANAGEMENT
[2017-02-01 16:00] VITALS: BP 96/53
--- NOTE | 2017-02-01 16:30 | NUR ---
ALERT AND ORIENTED TO PERSON AND PLACE. FAMILY AT BEDSIDE. RETURN TO ROOM VIA BED FROM BONE SCAN. FAMILY REQUESTING TO SPEAK WITH . AFLUTTER 96bpm ON TELEMETRY. DENIES SOB. RT LEG PAIN. DENIES MEDICATION. CONTINUE PLAN OF CARE. BED LOCKED AND LOW. CALL LIGHT IN REACH. TWO SIDERAILS UP.
[2017-02-01 19:00] VITALS: BP 109/64
--- NOTE | 2017-02-01 19:37 | NUR ---
PT ASSESSMENT COMPLETE AWAKE AND ALERT ORIENTED TO NAME ONLY PT HAS FAMILY AT BEDSIDE AT THIS TIME NO ACUTE DISTRESS NOTED VOICES ALL NEEDS TO STAFF CALL LIGHT IN REACH.
--- NOTE | 2017-02-01 22:00 | NUR ---
PT DAUGHTER COMES TO DESK WITH TEARS NOTED TO FACE. STAES THAT PT IS TALKING ABOUT AND THAT HE IS WAITING ON FAISAL TO TAKE HIM HOME. ENTERED TO ROOM SPOKE WITH PT NOTED PT WITH SOME CONFUSION AND STATES THAT HE WAS AWAITING INSTRUCTIONS FROM GOD ON WHEN HE IS LEAVING. PT DENIES PAIN OR FEAR. VITAL SIGNS AND HEART RYTHM STABLE. WILL MONITOR.
[2017-02-02] VITALS: BP 113/71
--- NOTE | 2017-02-02 01:45 | NUR ---
PT RESTING IN ROOM FAMILY AT SIDE NO DISTRESS NOTED CALL LIGHT IN REACH BED ALARM ON .
[2017-02-02 04:00] VITALS: BP 105/64
--- NOTE | 2017-02-02 04:27 | NUR ---
PT RESTING WELL WITH EYES CLOSED NO DISTRESS NOTED VOICES NEEDS TO STAFF FAMILY AT BEDSIDE.
[2017-02-02 06:52] LABS: HEMOGLOBIN A1C 7.1 % (4.8-6.0)
[2017-02-02 06:58] LABS: BASOPHILS 0.1 % (0-2); EOSINOPHILS 2.8 % (0-7); HEMATOCRIT 33.9 % (42.0-54.0); HEMOGLOBIN 11.4 g/dL (13.5-17.5); IMMATURE GRANULOCYTES 1.3 % (0-5); LYMPHOCYTES 20.6 % (15-50); MCH 30.8 pg (26.0-34.0); MCHC 33.6 g/dL (31.0-37.0); MCV 91.6 fL (80.0-100.0); MEAN PLATELET VOLUME 9.5 fL (7.4-10.4); MONOCYTES 7.7 % (2-11); NEUTROPHILS 67.5 % (40-80); PLATELET COUNT 386 10x3/uL (130-400); RDW 14.8 % (11.5-14.5); WBC 8.7 10x3/uL (4.8-10.8)
[2017-02-02 07:29] LABS: CALCIUM 9.2 mg/dL (8.5-10.1); CARBON DIOXIDE 34.1 mmol/L (21.0-32.0); CREATININE - SERUM 1.8 mg/dL (0.6-1.3); POTASSIUM - SERUM 4.1 mmol/L (3.5-5.1); THYROID STIMULATING HORMONE 3.17 uIU/mL (0.36-3.74)
[2017-02-02 08:17] VITALS: BP 108/66
--- NOTE | 2017-02-02 08:27 | NUR ---
ALERT AND ORIENTED X4. FAMILY AT BEDSIDE. REQUEST FOR DNR ORDER. CALL YOVANI LEE FOR ORDER WITNESSED BY MADDIE FLORES. DNR ORDER PLACED. CONTINUE PLAN OF CARE AND SAFETY PRECAUTIONS.
--- NOTE | 2017-02-02 15:12 | NUR ---
ALERT AND ORIENTED X4. RESTING IN BED. AT BEDSIDE. APPROVES TRANSFER TO REHAB. REPORT GIVEN TO MADDIE VANCE IN REHAB. ROOM NOT CLEAN. WAITING FOR TIME TO TRANSFER. CONTINE PLAN OF CARE. BED LOCKED AND LOW. CALL LIGHT IN REACH. TWO SIDERAILS UP. LT FA IV STAYS PER REHAB REQUEST.
--- NOTE | 2017-02-02 16:45 | NUR ---
FSBS CHECKED AND TREATED FOR 220 FS. 4 UNITS GIVEN PER SLIDING SCALE. ALERT AND ORIENTED X4. TRANSFER TO ROOM 1107 IN REHAB VIA WHEELCHAIR ACCOMPANIED BY STAFF AND SPOUSE. REMAINS FREE FROM INJURY.
== END 2017-02-02 17:31 | DRG 291 ==
LOC: D.ER 14:05 → D.M2 18:22 → OBSVTIME 18:22 → D.M2 18:23
PROVIDERS: Emergency Medicine; Family Medicine; Family Medicine Adult Medicine; Internal Medicine Nephrology; Internal Medicine Pulmonary Disease; ADMIT Family Medicine
DX: I13.0 Hypertensive heart and chronic kidney disease with heart failure and stage 1 through stage 4 chronic kidney disease, or unspecified chronic kidney disease (principal); I50.23 Acute on chronic systolic (congestive) heart failure; J18.9 Pneumonia, unspecified organism; E87.1 Hypo-osmolality and hyponatremia; I50.1 Left ventricular failure, unspecified; I48.92 Unspecified atrial flutter; I42.9 Cardiomyopathy, unspecified; F03.90 Unspecified dementia, unspecified severity, without behavioral disturbance, psychotic disturbance, mood disturbance, and anxiety; I48.2 Chronic atrial fibrillation; E11.22 Type 2 diabetes mellitus with diabetic chronic kidney disease; N18.9 Chronic kidney disease, unspecified; I27.2 Other secondary pulmonary hypertension; E78.5 Hyperlipidemia, unspecified; K59.00 Constipation, unspecified; I08.0 Rheumatic disorders of both mitral and aortic valves; D50.9 Iron deficiency anemia, unspecified; N40.0 Benign prostatic hyperplasia without lower urinary tract symptoms; I25.10 Atherosclerotic heart disease of native coronary artery without angina pectoris; Z95.5 Presence of coronary angioplasty implant and graft; I08.3 Combined rheumatic disorders of mitral, aortic and tricuspid valves; J84.112 Idiopathic pulmonary fibrosis; Z66 Do not resuscitate; C61 Malignant neoplasm of prostate

== ENCOUNTER 2017-02-02 15:49 | Inpatient (IN) | payer MEDICARE, BC ==
[~2017-02-02] VITALS: Ht 170.2 cm; Wt 77.1 kg
[~2017-02-02 15:49] MED LIST changes: +BENZONATATE200 MG PO; +BUMEX2 MG PO; +COLACE100 MG PO; +FERREX 150 PLUS1 CAP PO; +HUMALOG 30100 UNITS/ SC
[2017-02-02 17:11] VITALS: BP 92/55; BMI 27.1
--- NOTE | 2017-02-02 18:45 | NUR ---
PT ARRIVED TO UNIT VIA WHEELCHAIR ACCOMPANIED BY HOSPITAL STAFF AND FAMILY. PT IS A&OX1. PT HAS NO SKIN BREAKDOWN. PT IS ON ROOM AIR. PT HAS A PERIPHERAL IV S'LOCKED TO THE LEFT FOREARM. FAMILY IS AT BEDSIDE. ORIENTED FAMILY TO ROOM.
[2017-02-02 18:46] LABS: BASOPHILS 0.2 % (0-2); EOSINOPHILS 1.7 % (0-7); HEMATOCRIT 33.8 % (42.0-54.0); HEMOGLOBIN 11.4 g/dL (13.5-17.5); IMMATURE GRANULOCYTES 1.2 % (0-5); LYMPHOCYTES 18.4 % (15-50); MCH 31.3 pg (26.0-34.0); MCHC 33.7 g/dL (31.0-37.0); MCV 92.9 fL (80.0-100.0); MEAN PLATELET VOLUME 9.2 fL (7.4-10.4); MONOCYTES 9.4 % (2-11); NEUTROPHILS 69.1 % (40-80); PLATELET COUNT 344 10x3/uL (130-400); RBC 3.64 10x6/uL (4.20-6.10); RDW 14.9 % (11.5-14.5); WBC 10.1 10x3/uL (4.8-10.8)
[2017-02-02 19:03] LABS: CALCIUM 9.1 mg/dL (8.5-10.1); CARBON DIOXIDE 34.6 mmol/L (21.0-32.0); CREATININE - SERUM 1.8 mg/dL (0.6-1.3); POTASSIUM - SERUM 4.6 mmol/L (3.5-5.1)
--- NOTE | 2017-02-02 19:20 | NUR ---
PATIENT IN BED, AWAKE. PATIENT INTRODUCED HIS SON TO ME. SON WILL BE STAYING THE NIGHT AT PATIENT'S BEDSIDE.
[2017-02-02 21:10] VITALS: BP 102/60
--- NOTE | 2017-02-02 21:10 | NUR ---
CONTNUES IN BED, AWAKE. VS AND ASSESSMENT COMPLETE. TOLD PATIENT I WILL RETURN AT EARLIEST POSSIBLE OPPORTUNITY TO DELIVER HIS HS MEDS.
--- NOTE | 2017-02-02 23:30 | NUR ---
HS MEDS GIVEN TO PATIENT PO. FLUSHED LEFT FA S/L--IT REMAINS PATENT. FSBS 176. GAVE PATIENT 2 UNITS HUMALOG INSULIN SC INJ IN RIGHT UPPER ARM.
--- NOTE | 2017-02-03 00:10 | NUR ---
IN BED, REMAINS AWAKE. NO COMPLAINTS AT THIS TIME.
--- NOTE | 2017-02-03 02:10 | NUR ---
PATIENT AWAKE. JUST FINISHED URINATING 200ML. SON ASSISTED PATIENT WITH URINAL.
--- NOTE | 2017-02-03 04:25 | NUR ---
RESTING QUIETLY IN BED, EYES CLOSED. EMPTIED 125ML CLEAR LIGHT YELLOW URINE FROM BEDSIDE URINAL FOR A TOTAL OF 1325ML THIS SHIFT.
--- NOTE | 2017-02-03 06:30 | NUR ---
FSBS 132. GAVE PATIENT SCHEDULED BUMEX PO. FLUSHED LEFT FOREARM S/L--REMAINS PATENT. EMPTIED ANOTHER 275ML FROM BEDSIDE URINAL.
--- NOTE | 2017-02-03 08:00 | NUR ---
PATIENT PLEASANTLY CONFUSED. ALERT TO PERSON/PLACE ONLY. IN ROOM WITH PATIENT. CALL LIGHT WITHIN REACH. BED ALARM ON. PATIENT IS ON ELELECTROLITE PROCOCHOL. LABS WNL.
[2017-02-03 08:04] LABS: INR 1.39 (0.85-1.17); PROTIME 16.9 SECONDS (11.6-15.0)
[2017-02-03 09:11] VITALS: BP 110/56
--- NOTE | 2017-02-03 09:30 | NUR ---
PATIENT REQUESTED PRN TYLENOL FOR HEADACHE. PRN TYLENOL GIVEN.
[2017-02-03 10:24] VITALS: Ht 170.2 cm; Wt 77.1 kg
--- NOTE | 2017-02-03 10:26 | NUR ---
PATIENT IN REHAB ROOM WORKING WITH PHYSICAL THERAPIST. DENIES ANY PAIN/DISC AT THIS TIME.
--- NOTE | 2017-02-03 12:19 | NUR ---
GLUCOSE LEVEL 199. TWO UNITS OF SLIDING SCALE INSULIN GIVEN
--- NOTE | 2017-02-03 13:35 | NUR ---
resting quietly in bed.family at bedside.
--- NOTE | 2017-02-03 14:45 | NUR ---
URINE COLLECTED, CLEAN CATCH. TAKEN UP TO LAB.
[2017-02-03 16:13] LABS: APPEARANCE CLEAR (CLEAR); BILIRUBIN NEGATIVE (NEGATIVE); COLOR YELLOW (YELLOW); GLUCOSE NEGATIVE (NEGATIVE); KETONE NEGATIVE (NEGATIVE); LEUKOCYTE ESTERASE NEGATIVE (NEGATIVE); NITRITE NEGATIVE (NEGATIVE); PROTEIN NEGATIVE (NEGATIVE); SPECIFIC GRAVITY 1.015 (1.005-1.020); UROBILINOGEN NORMAL (NORMAL)
--- NOTE | 2017-02-03 18:42 | NUR ---
GLUCOSE LEVEL 208. FOUR UNITS OF SLIDING SCALE INSULIN GIVEN
--- NOTE | 2017-02-03 19:00 | NUR ---
IN BED. FEMALE FAMILY MEMBER PRESENT AT BEDSIDE.
--- NOTE | 2017-02-03 21:40 | NUR ---
IN BED, RESTING QUIETLY, EYES CLOSED.
[2017-02-03 23:00] VITALS: BP 122/64
--- NOTE | 2017-02-03 23:00 | NUR ---
ASSESSMENT, VS AND HS MEDS COMPLETE. FSBS 239. GAVE PATIENT 4 UNITS HUMALOG SLIDING SCALE INSULIN SC IN RIGHT UPPER ARM.
--- NOTE | 2017-02-04 00:30 | NUR ---
RESTING QUIETLY IN BED, EYES CLOSED.
--- NOTE | 2017-02-04 02:40 | NUR ---
RESTING QUIETLY IN BED, HOB UP 30 DEGREES. FAMILY MEMBER RESTING IN RECLINER AT PRESENT. SHE HAS BEEN ASSISTING HIM UP TO BR TO URINATE SINCE BEGINNING OF SHIFT.
--- NOTE | 2017-02-04 04:25 | NUR ---
PATIENT IN BED, RESTING QUIETLY.
[2017-02-04 06:38] LABS: INR 1.45 (0.85-1.17); PROTIME 17.6 SECONDS (11.6-15.0)
[2017-02-04 06:44] LABS: ANION GAP 8.8 mmol/L (8-16); CALCIUM 9.1 mg/dL (8.5-10.1); CARBON DIOXIDE 32.4 mmol/L (21.0-32.0); CREATININE - SERUM 1.7 mg/dL (0.6-1.3); POTASSIUM - SERUM 4.2 mmol/L (3.5-5.1)
--- NOTE | 2017-02-04 06:50 | NUR ---
FSBS 146. PATIENT SCHEDULED BUMEX. DENIES NEEDS.
--- NOTE | 2017-02-04 08:56 | RHP ---
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 HISTORY OF PRESENT ILLNESS: The patient is an 82-year-old gentleman of Dr. Zhang who is admitted with a diagnosis of CHF myopathy. He was discharged on 01/14/2017 after being admitted for pneumonia and CHF. After he went home, he became steadily more weak and short of breath. He was [facility] in [facility] 01[facility]/2017 and then again on the day prior to admission. He had gained 20 pounds since discharge. His chest x-ray showed worsening congestion. He was sent to the ER and subsequently admitted on 01/16/2017. He lost 30 pounds with diuresis. He denied any chest pain. Had a slightly productive cough that was better. He remained in atrial flutter on conveyor monitor. He was still hyponatremic with sodium of 123. He was ambulating 250 feet with PT, but tired easily. He gets shortness of breath and wobbly on his feet. Previously, he was living with his and was moderately independent with ADLs and mobility, would like to return home and get back to his prior level of function if possible. COMORBIDITIES: Include bilateral pulmonary infiltrates, pleural effusions, pulmonary edema AFib/aflutter, hypertension, hyponatremia, pulmonary hypertension, aortic sclerosis, coronary artery disease, chronic kidney disease, anemia and dementia. PAST MEDICAL HISTORY: Significant for a history of AFib and flutter, coronary artery disease, electrolyte abnormalities, pulmonary hypertension, anemia and dementia. PAST SURGICAL HISTORY: Includes gallbladder surgery, appendectomy, coronary artery bypass grafting and also right knee surgery. ALLERGIES: PENICILLIN, ATIVAN, and FLEXERIL. CURRENT MEDICATIONS: He is on warfarin 5 mg daily, Flomax 0.4 mg daily, potassium 20 mEq daily, Actos 45 mg daily, Floranex 460 mg daily, Niferex 1 cap daily, vitamin D 1000 units daily, Lipitor 20 mg at bedtime, aspirin 81 mg daily. He is currently on an electrolyte protocol secondary to a low potassium. He is on a multivitamin daily. He is on DuoNeb updrafts as needed for shortness of breath. He is on a low resistant sliding scale with Humalog. He is on Aricept 10 mg q.h.s., Mucinex 600 mg b.i.d., Colace 100 mg b.i.d., Bumex 2 mg b.i.d., Pulmicort 0.5 mg b.i.d., Tessalon Perles 200 mg t.i.d. p.r.n., Brovana 15 mcg b.i.d. and polyethylene glycol 17 grams in 8 ounces of water daily. HABITS: No alcohol or tobacco use. FAMILY HISTORY: Noncontributory. HISTORY AND PHYSICAL [id number] JOSEPH SARAVIA SOCIAL HISTORY: The patient hopes to return back home with his and get back to his prior level of functioning. REVIEW OF SYSTEMS: GENERAL: He does complain of weakness. HEENT: Denies cold, cough, or congestion. CARDIOVASCULAR: Denies chest pain. PHYSICAL EXAMINATION: VITAL SIGNS: Stable, afebrile. GENERAL: An elderly gentleman in no acute distress, alert upon exam. HEENT: Normocephalic, atraumatic. Mucosa moist. NECK: Supple with no lymphadenopathy. LUNGS: Clear in upper [place]. HEART: Irregular rate and rhythm. ABDOMEN: Benign. EXTREMITIES: Does have a little peripheral edema. NEUROLOGIC: Slow to mentate, but easily redirected. LABORATORY DATA: His INR is 1.39. White count of 10.1, H&H of 11 and 34 and platelet count was noted to be 344. His sodium is 123, potassium 4.6, BUN and creatinine of 56 and 1.8 and blood sugar is noted to be 138. ASSESSMENT: This is an 82-year-old gentleman admitted to the rehab with a working diagnosis of congestive heart failure induced myopathy. The patient has potential to make improvement. We instituted the following multidisciplinary therapies including to, but not limited to physical, occupational, respiratory, speech, nutritional services, prosthetics and orthotics. Given his complex condition and risk for more complications, rehabilitation services cannot be provided at a low level of care such as a fci facility. PLAN: 1. Admit to [facility] rehab for intensive inpatient therapy to include the following disciplines: A. Physical therapy to improve gait, all transfer skills and bed mobility to a modified independent level. B. Occupational therapy to improve activities of daily living to a modified independent level. C. Case management to assist with discharge planning and placement options. D. Nutrition to assist with nutritional needs. E. Rehabilitation nursing to assist in monitoring the patient's underlying medical conditions and to assist with any type of bowel or bladder management. 2. The patient's current medication and medical care will be continued. 3. The patient will be placed on standard fall precautions. 4. We will adjust his warfarin dosage to get his INR therapeutic. 5. We will discuss this patient during care team staff meeting this week. TRANSINT:[id number] Voice Confirmation ID: [id number] DOCUMENT ID: [id number] MEL notes whether there has been none or any medical/functional change since admission: - HISTORY AND PHYSICAL [id number] JOSEPH SARAVIA attests patient continues to be appropriate for IRF: - DARRIUS GARCIA MD at [id number] CC: [id number] DICTATION DATE: 02/03/17 0816 BLOCKER AND SEWER: 02/03/17 1013 ADM IN [facility] [address] [id number]
[2017-02-04 09:10] VITALS: BP 112/58
--- NOTE | 2017-02-04 18:00 | NUR ---
RESTING QUIETLY.CL IN REACH.
--- NOTE | 2017-02-04 18:08 | NUR ---
PT RESTING IN BED WITH EYES OPEN CALL LIGHT IN REACH NO PROBLEMS ROBB MONITER
--- NOTE | 2017-02-04 19:00 | NUR ---
IN BED, FAMILY AT BEDSIDE. NO DISTRESS NOTED.
[2017-02-04 21:55] VITALS: BP 104/53
--- NOTE | 2017-02-04 21:55 | NUR ---
ASSESSMENT AND HS MEDS COMPLETE. GAVE PATIENT 4 UNITS HUMALOG S/S INSULIN SC IN LEFT UPPER ARM. DENIES NEEDS.
--- NOTE | 2017-02-04 23:45 | NUR ---
RESTING QUIETLY IN BED, EYES CLOSED.
--- NOTE | 2017-02-05 02:15 | NUR ---
PATIENT AWAKE. DENIES NEEDS. ASSISTED HIM TO REPOSITION HIGHER UP IN BED FOR COMFORT.
--- NOTE | 2017-02-05 04:50 | NUR ---
RESTING QUIETLY IN BED, EYES CLOSED. RESPIRATIONS ARE UNLABORED.
--- NOTE | 2017-02-05 07:28 | NUR ---
RESTING QUIETLY IN BED CALL LIGHT IN REACH
[2017-02-05 08:14] VITALS: BP 111/63
--- NOTE | 2017-02-05 10:09 | NUR ---
PATIENT ADMITTED TO REHAB FROM ACUTE FLOOR. DR. PENA IS PCP, [facility] IS [facility]AC[facility] OF CHOICE. [facility] HOME WILL RESUME CARE OF PATIENT ALONG WITH HOUSECALL[facility]. DME AT HOME IS WALKER, SHOWER CHAIR, CANE, WHEELCHAIR AND DME IS PROVIDED THROUGH [facility]. WILL CONTINUE TO FOLLOW WITH PATIENT
--- NOTE | 2017-02-05 15:30 | NUR ---
Nutrition Follow Up: Pt is eating 42% meal avg on an AHA 4g Na diet. Wt loss 3# since admit - likely r/t fluid. +BM 02/03/17. Labs reviewed. Meds noted. Rec continue current diet. If glucose continues elevated will need to add ADA to diet. RD following.
--- NOTE | 2017-02-05 15:32 | NUR ---
PT RESTING IN BED AT BEDSIDE NO PROBLEMS CALL LIGHT IN REACH WILL MONITER
--- NOTE | 2017-02-05 19:15 | NUR ---
PATIENT UP TO BR COMMODE. PRESENT IN ROOM WITH PATIENT.
--- NOTE | 2017-02-05 20:00 | NUR ---
IN BED, AWAKE. DENIES NEEDS.
[2017-02-05 22:00] VITALS: BP 90/55
--- NOTE | 2017-02-05 22:00 | NUR ---
ASSESSMENT AND HS MEDS COMPLETE. FSBS 249. GAVE PATIENT 4 UNITS HUMALOG SLIDING SCALE INSULIN SC IN LEFT UPPER ARM.
--- NOTE | 2017-02-06 00:05 | NUR ---
RESTING IN BED, EYES CLOSED. DAUGHTER STAYING IN ROOM IN RECLINER AT BEDSIDE.
--- NOTE | 2017-02-06 02:10 | NUR ---
RESTING IN BED, EYES CLOSED. WAS UP TO BR ABOUT 45 MINUTES AGO WITH DAUGHTER'S ASSIST.
--- NOTE | 2017-02-06 04:00 | NUR ---
UP AMBULATING TO BR WITH DAUGHTER'S ASSIST.
--- NOTE | 2017-02-06 06:05 | NUR ---
FSBS 119. PATIENT DENIES NEEDS.
[2017-02-06 06:25] LABS: BASOPHILS 0.1 % (0-2); EOSINOPHILS 3.6 % (0-7); HEMATOCRIT 34.4 % (42.0-54.0); HEMOGLOBIN 11.4 g/dL (13.5-17.5); IMMATURE GRANULOCYTES 0.7 % (0-5); LYMPHOCYTES 23.2 % (15-50); MCHC 33.1 g/dL (31.0-37.0); MCV 93.5 fL (80.0-100.0); MEAN PLATELET VOLUME 9.2 fL (7.4-10.4); MONOCYTES 7.4 % (2-11); PLATELET COUNT 322 10x3/uL (130-400); RBC 3.68 10x6/uL (4.20-6.10); RDW 15.3 % (11.5-14.5); WBC 9.7 10x3/uL (4.8-10.8)
[2017-02-06 06:31] LABS: INR 1.51 (0.85-1.17); PROTIME 18.1 SECONDS (11.6-15.0)
[2017-02-06 06:47] LABS: ANION GAP 11.3 mmol/L (8-16); CALCIUM 9.2 mg/dL (8.5-10.1); CARBON DIOXIDE 30.1 mmol/L (21.0-32.0); CREATININE - SERUM 1.5 mg/dL (0.6-1.3); POTASSIUM - SERUM 4.4 mmol/L (3.5-5.1)
--- NOTE | 2017-02-06 06:52 | NUR ---
RESTING IN BED QUIETLY. CALL LIGHT IN REACH
[2017-02-06 07:45] VITALS: BP 99/55
--- NOTE | 2017-02-06 07:49 | NUR ---
PATIENT ALERT/ORIENT. FAMILY IN ROOM. CALL LIGHT WITHIN REACH. VOICES NO NEEDS. TELEMETRY [facility] PLACE[facility]. K LEVEL 4.4.
--- NOTE | 2017-02-06 09:55 | NUR ---
PATIENT WORKING IN REHAB ROOM WITH PHYSICAL THERAPIST. C/O HEADACHE PRN ULTRUM GIVEN
--- NOTE | 2017-02-06 11:30 | NUR ---
GLUCOSE LEVEL 271. SIX UNTITS OF SLIDING SCALE INSULIN GIVEN
--- NOTE | 2017-02-06 12:54 | NUR ---
RONALD SCOTT PREPARED [employer] PRODUCTION TEAM MEMBER INTO SEE PATIENT.
--- NOTE | 2017-02-06 17:03 | NUR ---
GLUCOSE LEVEL 149. NO SLINDING SCALE INSULIN GIVEN
--- NOTE | 2017-02-06 19:29 | NUR ---
PT LYING SEMI FOLWER POSITION WATCHING TV WITH SPOUSE IN ROOM, PT DENIES ANY PAIN OR NEEDS. PT STATES THERAPY WAS GOOD TODAY.
[2017-02-06 19:49] VITALS: BP 103/64
--- NOTE | 2017-02-06 21:30 | NUR ---
PT CONVERSIVE, SMILES EASILY, DENIES PAIN, SPOUSE STATES SHE WILL RETURN IN THE MORNING, DAUGHTER STAYS WITH HIM.
--- NOTE | 2017-02-07 03:22 | NUR ---
PT RESTING QUIETLY, NO S/S OF ACUTE DISTESS, DAUGHTER IN ROOM, DAUGHTER ASSISTS WITH HIS TOILETING AND BASIC ADL'S.
[2017-02-07 07:53] VITALS: BP 108/66
--- NOTE | 2017-02-07 08:50 | NUR ---
PT AM MEDS ADMINISTERED. PT SPOUSE AT BEDSIDE ASSISTING WITH NEEDS. WCTM.
--- NOTE | 2017-02-07 11:51 | NUR ---
PT FSBS 189. PT GIVEN 2 UNITS SS INSULIN. WCTM.
--- NOTE | 2017-02-07 17:07 | NUR ---
PT FSBS 168. PT GIVEN 2 UNITS OF SS INSULIN. WCTM.
--- NOTE | 2017-02-07 19:30 | NUR ---
PT. IN BED WITH HOB UP FOR COMFORT AND AT BEDSIDE VISITING. NO VOICED NEEDS AT THIS TIME. ASSESSMENT COMPLETED. CALL LIGHT WITHIN REACH. STATES THAT DAUGHTER WILL BE STAYING THE NIGHT WITH PT.
[2017-02-07 20:57] VITALS: BP 103/61
--- NOTE | 2017-02-07 23:12 | NUR ---
PT. IN BED WITH HOB UP FOR COMFORT WITH EYES CLOSED AND RESP. DEEP AND EVEN. CALL LIGHT WITHIN REACH. DAUGHTER IN ROOM WITH PT. FOR THE NIGHT.
--- NOTE | 2017-02-08 03:01 | NUR ---
PT. IN BED WITH HOB UP FOR COMFORT WITH EYES CLOSED AND RESP. DEEP AND EVEN. CALL LIGHT WITHIN REACH AND HIS DAUGHTER IS IN RECLINER ASLEEP BESIDE HIM.
--- NOTE | 2017-02-08 05:10 | NUR ---
FOR FSBS OF 79 GAVE PT. APPLE JUICE AND DAISY CRACKERS. PT'S DAUGHTER HAD GIVEN HIM A CHOCOLATE MILK SHAKE FROM [employer] LAST NIGHT HIS SNACK.
[2017-02-08 07:02] LABS: BASOPHILS 0.1 % (0-2); HEMATOCRIT 32.5 % (42.0-54.0); HEMOGLOBIN 10.5 g/dL (13.5-17.5); IMMATURE GRANULOCYTES 0.6 % (0-5); LYMPHOCYTES 17.4 % (15-50); MCH 30.9 pg (26.0-34.0); MCHC 32.3 g/dL (31.0-37.0); MEAN PLATELET VOLUME 9.6 fL (7.4-10.4); MONOCYTES 8.2 % (2-11); NEUTROPHILS 71.7 % (40-80); PLATELET COUNT 314 10x3/uL (130-400); RDW 16.1 % (11.5-14.5); WBC 9.4 10x3/uL (4.8-10.8)
[2017-02-08 07:12] LABS: MCV 95.6 fL (80.0-100.0)
[2017-02-08 07:16] LABS: CALCIUM 8.9 mg/dL (8.5-10.1); CARBON DIOXIDE 31.4 mmol/L (21.0-32.0); CREATININE - SERUM 1.6 mg/dL (0.6-1.3); POTASSIUM - SERUM 4.4 mmol/L (3.5-5.1)
--- NOTE | 2017-02-08 07:30 | NUR ---
PT RESTING IN BED WITH EYES OPEN. ALERT AND ORIENTED X 3. DENIES ACUTE PAIN OR DISCOMFORT AT THIS TIME. 2 FAMILY MEMBERS ARE AT THE BEDSIDE. TELEMETRY UNIT IS ON AND INTACT. SR'S ARE UP X 3 IN BED. CALL LIGHT AND BEDSIDE TABLE ARE WITHIN EASY REACH.
--- NOTE | 2017-02-08 09:14 | NUR ---
PT IS GETTING IN THE SHOWER WITH OT AT THIS TIME. NO ACUTE DISTRESS NOTED.
--- NOTE | 2017-02-08 11:30 | NUR ---
PT IS RESTING IN BED BETWEEN THERAPIES. NO NEEDS VOICED.
--- NOTE | 2017-02-08 13:00 | NUR ---
IN BED. AT BEDSIDE.CL IN REACH.
--- NOTE | 2017-02-08 15:19 | NUR ---
NUTRITION MONITORING & EVAL CHART REVIEWED. PT TOLERATING AHA DIET WITH 100% INTAKE LUNCH. WILL CONTINUE TO PROVIDE DIET, MONITOR PO INTAKE. RD FOLLOWING
--- NOTE | 2017-02-08 19:45 | NUR ---
PT RESTING IN BED, DAUGHTER AT BEDSIDE. KRISTY NEEDS. WCTM.
[2017-02-08 20:49] VITALS: BP 105/53
--- NOTE | 2017-02-08 22:40 | NUR ---
PT HS MEDS ADMINISTERED. PT DENIES NEEDS. WCTM.
--- NOTE | 2017-02-09 01:15 | NUR ---
PT'S DAUGHTER CALLED ME INTO ROOM BC PT HAD BROKEN OUT INTO A SWEAT. PT'S FSBS 53 AT THIS TIME. PROVIDED PT WITH APPLE JUICE AND PT ALSO ATE ORANGES.
--- NOTE | 2017-02-09 01:32 | NUR ---
PT FSBS RECHECKED AND IS NOW 76. PT STATES HE "FEELS FINE." WCTM.
--- NOTE | 2017-02-09 03:15 | NUR ---
PT RESTING, EYES CLOSED. RR ARE EVEN AND UNLABORED. CL IN REACH. WCTM.
[2017-02-09 05:51] LABS: INR 1.81 (0.85-1.17)
--- NOTE | 2017-02-09 08:15 | NUR ---
PT RESTING IN BED WITH EYES OPEN CALL LIGHT IN REACH WILL MONITER
--- NOTE | 2017-02-09 09:00 | NUR ---
IN BED.CL IN REACH.FAMILY AT BEDSIDE.
--- NOTE | 2017-02-09 10:47 | NUR ---
PATIENT DISCHRGING HOME TODAY WITH FAMILY.[facility] WILL FOLLOW WITH PATIENT AT HOME ALONG WITH [facility]. NO NEW DME NEEDED AT THIS TIME. DR. PENA 02/18/17 @ 12:15, DR. MERCADO 03/03/17 @ 1:30, DR. CID 02/17/17 @ 2:40. PATIENT CHOICE FORM FOR HOME HEALTH AND [facility] FORM SIGNED, EXPLAINED AND FILED IN CHART. ORDERS HAVE BEEN FAXED WITH CONFORMATION RECIEVED
--- NOTE | 2017-02-09 12:02 | NUR ---
PT DISCHARGED TO HOME VIA WHEELCHAIR PT DISCHARGE SUMMARY AND MEDS REVIEWED WITH MEDS CALLED TO [place] ON [facility]
== END 2017-02-09 12:06 | disposition home health service (06) | DRG 91 ==
LOC: D.REHAB 15:49
PROVIDERS: Internal Medicine; Internal Medicine Nephrology; ADMIT Emergency Medicine
DX: G72.89 Other specified myopathies (principal); J18.9 Pneumonia, unspecified organism; I13.0 Hypertensive heart and chronic kidney disease with heart failure and stage 1 through stage 4 chronic kidney disease, or unspecified chronic kidney disease; J90 Pleural effusion, not elsewhere classified; J81.1 Chronic pulmonary edema; E87.1 Hypo-osmolality and hyponatremia; I50.9 Heart failure, unspecified; Z66 Do not resuscitate; N18.9 Chronic kidney disease, unspecified; I48.91 Unspecified atrial fibrillation; I27.2 Other secondary pulmonary hypertension; D64.9 Anemia, unspecified; F03.90 Unspecified dementia, unspecified severity, without behavioral disturbance, psychotic disturbance, mood disturbance, and anxiety; I25.10 Atherosclerotic heart disease of native coronary artery without angina pectoris; I70.0 Atherosclerosis of aorta; C61 Malignant neoplasm of prostate

== ENCOUNTER → 2017-06-28 08:15 | Outpatient (CLI) | payer MEDICARE, BC ==
[2017-02-03 10:24] VITALS: BMI 26.6
== END | disposition home or self-care (01) ==
LOC: D.NM 08:15
DX: T84.84XA Pain due to internal orthopedic prosthetic devices, implants and grafts, initial encounter (principal); M25.561 Pain in right knee

== ENCOUNTER → 2017-09-06 15:18 | Outpatient (CLI) | payer MEDICARE, BC ==
[2017-02-03 10:24] VITALS: BMI 26.6
== END | disposition home or self-care (01) ==
LOC: D.LAB 15:15
DX: R97.20 Elevated prostate specific antigen [PSA] (principal)

== ENCOUNTER 2017-10-26 04:06 | Emergency (ER) | payer MEDICARE, BC ==
[2017-02-03 10:24] VITALS: BMI 26.6
--- NOTE | ~2017-10-26 | CN ---
PATIENT NAME:JOSEPH GRIMES MEDICAL RECORD: [id number] : 33 LOCATION:.ER ADMIT DATE: ACCOUNT: [id number] CONSULTING PHYSICIAN: LICHA CONN MD REFERRING PHYSICIAN: JENNY OLEARY MD DATE OF CONSULTATION: 10/26/2017 CARDIOLOGY CONSULT DIAGNOSES: 1. Hypotension. 2. Neck pain. 3. Coronary disease. 4. Previous PTCA and stent. 5. Paroxysmal atrial fibrillation, controlled in sinus rhythm on Tambocor. 6. Coumadin anticoagulation for atrial fibrillation. 7. Hyperlipidemia. 8. Cardiomyopathy. HISTORY: Mr. Grimes presents with neck pain. He was found to have a low blood pressure in the 80s. It has since come up to over 115. He was overall asymptomatic from a cardiac standpoint. 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 He had no chest pain and no chest discomfort. He had no EKG changes. He does have a history of PTCA and stent and this was in 2016. He is on no blood pressure medications. PHYSICAL EXAMINATION: GENERAL APPEARANCE: Well-nourished, well-developed, appears stated age. Level of distress, comfortable. PSYCHIATRIC: Mental status, alert, normal affect. Orientation, oriented to time, place and person. EYES: Lids and conjunctiva, noninjected. No discharge, no pallor. ENT: Lips, teeth, gums, normal dentition. Oropharynx, no cyanosis, no pallor. NECK: Carotid arteries, bilateral normal upstroke, no bruits, no thrills. JUGULAR VEINS: No jugular venous pressure or distention. CERVICAL LYMPH NODES: Nontender, nonenlarged. THYROID: Not enlarged. Nontender. No nodules. LUNGS: Respiratory effort, unlabored. CHEST: Normal curvature. No thoracic deformity. No chest wall tenderness. Percussion, resonant. Auscultation, clear. No wheezes, no rales, no rhonchi. CARDIOVASCULAR: Precordial exam, nondisplaced. No heaves or pericardial thrills. Rate and rhythm, regular. Heart sounds, normal S1, normal S2. No S3, no gallop, no rub. Systolic murmur, not heard. Diastolic murmur, not heard. EXTREMITIES: No cyanosis, no edema. Peripheral pulses, full and equal in all extremities, except as noted. No bruits appreciated. ABDOMEN: Soft, nondistended. Normal aorta. No bruit. Nontender. No masses. Liver, nontender, no hepatomegaly. Spleen, nontender, no splenomegaly. MUSCULOSKELETAL: No joint tenderness. No joint swelling. No erythema. NEUROLOGICAL: Normal gait, normal strength, normal tone. SKIN: Warm and dry. OVERALL IMPRESSION: Hypotension, unknown etiology. I do not think that this is cardiac in nature. He has had no dysrhythmias, no chest pain, and no EKG changes. At this time, no other cardiac workup or treatment is necessary. CONSULT REPORT [id number] JOSEPH GRIMES TRANSINT:[id number] Voice Confirmation ID: [id number] DOCUMENT ID: [id number] LICHA CONN MD at 1202 CC: [id number] DICTATION DATE: 10/26/17 1622 TIMBER KILLER: 10/26/17 1652 DEP ER 10/26/17 [id number] [place] [address]
[2017-10-26 04:47] LABS: BASOPHILS 0.1 % (0-2); EOSINOPHILS 3.3 % (0-7); HEMATOCRIT 33.6 % (42.0-54.0); HEMOGLOBIN 10.9 g/dL (13.5-17.5); IMMATURE GRANULOCYTES 0.3 % (0-5); LYMPHOCYTES 24.6 % (15-50); MCH 31.9 pg (26.0-34.0); MCHC 32.4 g/dL (31.0-37.0); MCV 98.2 fL (80.0-100.0); MEAN PLATELET VOLUME 10.2 fL (7.4-10.4); MONOCYTES 8.3 % (2-11); NEUTROPHILS 63.4 % (40-80); RBC 3.42 10x6/uL (4.20-6.10); RDW 15.3 % (11.5-14.5); WBC 7.3 10x3/uL (4.8-10.8)
[2017-10-26 04:49] LABS: PLATELET COUNT 153 10x3/uL (130-400)
[2017-10-26 04:56] LABS: APTT 54.7 SECONDS (22.8-39.4); INR 2.52 (0.85-1.17); PROTIME 26.5 SECONDS (11.6-15.0)
[2017-10-26 04:57] LABS: D-DIMER-QUANTITATIVE < 0.27 ug/mLFEU (0.20-0.54)
[2017-10-26 05:01] LABS: ALBUMIN 2.8 g/dL (3.4-5.0); ALKALINE PHOSPHATASE 91 U/L (46-116); ALT (SGPT) 17 U/L (10-68); BILIRUBIN - TOTAL 0.88 mg/dL (0.2-1.3); CALC OSMOLALITY 271 mosm/kg (275-300); CALCIUM 8.8 mg/dL (8.5-10.1); CHLORIDE - SERUM 97 mmol/L (98-107); CREATININE - SERUM 1.8 mg/dL (0.6-1.3); GLUCOSE 110 mg/dL (74-106); POTASSIUM - SERUM 4.5 mmol/L (3.5-5.1); PROTEIN - SERUM 6.6 g/dL (6.4-8.2); SODIUM 134 mmol/L (136-145); UREA NITROGEN 21 mg/dL (7-18); eGFR NON AFRICAN AMERICAN 38 mL/min (90-120)
[2017-10-26 05:12] LABS: CKMB 0.7 U/L (0.0-3.6); CREATINE KINASE 50 UL (21-232); TROPONIN-I 0.018 ng/mL (0.000-0.060)
[2017-10-26 08:55] LABS: CREATINE KINASE 47 UL (21-232)
[2017-10-26 08:56] LABS: TROPONIN-I < 0.017 ng/mL (0.000-0.060)
[2017-10-26 13:21] LABS: CKMB 0.8 U/L (0.0-3.6); CREATINE KINASE 51 UL (21-232)
[2017-10-26 13:23] LABS: TROPONIN-I < 0.017 ng/mL (0.000-0.060)
== END 2017-10-26 16:57 | disposition home or self-care (01) ==
LOC: OBSVTIME → D.ER 04:06 → OBSVTIME 12:33 → D.ER 12:33 → D.M2 12:33 → D.EDHOLD 12:33 → D.ER 16:57 → D.M2 18:44 → D.EDHOLD 18:44
PROVIDERS: Emergency Medicine; Family Medicine
DX: M25.512 Pain in left shoulder (principal); F03.90 Unspecified dementia, unspecified severity, without behavioral disturbance, psychotic disturbance, mood disturbance, and anxiety; E11.9 Type 2 diabetes mellitus without complications; K21.9 Gastro-esophageal reflux disease without esophagitis; I48.91 Unspecified atrial fibrillation; I45.10 Unspecified right bundle-branch block; I44.5 Left posterior fascicular block

== ENCOUNTER 2017-11-11 14:15 | Inpatient (IN) | payer MEDICARE, BC ==
[~2017-11-11] VITALS: Ht 170.2 cm; Wt 83.7 kg
--- NOTE | ~2017-11-11 | EC ---
PATIENT:JOSEPH SARAVIA DATE OF SERVICE: 11/11/17 SEX: M MEDICAL RECORD: [id number] DATE OF : 33 LOCATION:[facility] D230 AGE OF PATIENT: 82 ADMISSION DATE: 11/11/17 REFERRING PHYSICIAN: INTERPRETING PHYSICIAN: LICHA BURDICK MD ECHOCARDIOGRAM REPORT ECHO CHARGES 4 ECHO COMPLETE Date: 11/12 CLINICAL DIAGNOSIS: CHF HX OF CAD/CABG/STENTS ECHOCARDIOGRAPHIC MEASUREMENTS (adult normal given) AC root (d.<3.7cm) 4.2 cm LV Septum d (<1.2 cm> 1.4 cm Valve Excursion 1.1 cm LV Septum (systole) 1.5 cm Left Atria (s.<4.0cm> 4.6 cm LVPW d(<1.2cm) 1.2 cm RV (d.<2.3cm) 5.1 cm LVPW (sytole) 1.4 cm LV diastole(<5.6CM) 5.9 cm MV E-F(>70mm/sec) cm LV systole 5.0 cm LVOT Diameter 1.0 cm MV exc.(>10mm) 1.3 cm Est.ejection fraction (50-75%) % DOPPLER: LVIT cm/sec A 42.0 cm/sec E 129 cm/sec LA cm/sec RVSP 52 mmHg LVOT 122 cm/sec AOP1/2T m/s Asc. Ao 175 cm/sec RVOT 51 cm/sec RA cm/sec PA 116 cm/sec AV Gradient Peak 12.25mmHg AV Mean 7.71 mmHg AV Area 1.6 cm MV Gradient Peak 6.54 mmHg MV Mean 1.55 mmHg MV Area cm COMMENTS: Mannequin Molder: 2 BENEDICT WOOD Glass Worker: 1 Dr. Burdick TAPE# PACS Pericardial Effusion N DATE OF SERVICE: PROCEDURE: Echocardiogram. FINDINGS: 1. Left ventricular chamber size is mildly dilated. Left ventricular systolic function is moderately reduced, overall ejection fraction of 35% to 40%. 2. Left atrium is enlarged at 4.6 cm. Right atrium and right ventricle chamber sizes are as well mildly dilated. 3. Valvular structures: Aortic valve demonstrates mild calcific aortic ECHOCARDIOGRAM REPORT [id number] JOSEPH SARAVIA stenosis. Valve area calculates to 1.6 cm-squared and has a gradient of 13 mm across the valve. The remaining valvular structures have normal structure and motion. 5. Doppler interrogation elsewise reveals mild mitral regurgitation, moderate tricuspid regurgitation, no other valvular insufficiency or stenosis. Pulmonary systolic pressure is elevated estimated at 52 mmHg. 6. No evidence of pericardial effusion or left ventricular thrombus. TRANSINT:[id number] Voice Confirmation ID: [id number] DOCUMENT ID: [id number] LICHA BURDICK MD at 1056 CC: [id number] DICTATION DATE: 11/12/17 1300 OIL LEASE BUYER: 11/12/17 1316 DIS IN 11/15/17 [id number] [place] [address]
[2017-11-11] MEDS ORDERED: COUMADIN5 MG PO (14:41)
[2017-11-11] MEDS ORDERED: FLECAINIDE ACE100 MG PO (14:44)
[2017-11-11 14:50] VITALS: BP 106/66; BMI 27.4
[2017-11-11 15:10] LABS: BASOPHILS 0 % (0-2); EOSINOPHILS 0.9 % (0-7); HEMATOCRIT 34.6 % (42.0-54.0); HEMOGLOBIN 11.5 g/dL (13.5-17.5); IMMATURE GRANULOCYTES 0.2 % (0-5); LYMPHOCYTES 13.9 % (15-50); MCH 31.9 pg (26.0-34.0); MCHC 33.2 g/dL (31.0-37.0); MCV 96.1 fL (80.0-100.0); MEAN PLATELET VOLUME 10.4 fL (7.4-10.4); MONOCYTES 9.1 % (2-11); NEUTROPHILS 75.9 % (40-80); PLATELET COUNT 183 10x3/uL (130-400); WBC 6.4 10x3/uL (4.8-10.8)
[2017-11-11 15:22] LABS: BILIRUBIN - TOTAL 1.15 mg/dL (0.2-1.3); CALCIUM 8.7 mg/dL (8.5-10.1); CARBON DIOXIDE 29.1 mmol/L (21.0-32.0); CREATININE - SERUM 1.7 mg/dL (0.6-1.3); MAGNESIUM - SERUM 2.1 mg/dL (1.8-2.4); POTASSIUM - SERUM 4.1 mmol/L (3.5-5.1); PROTEIN - SERUM 7.3 g/dL (6.4-8.2)
[2017-11-11 20:08] LABS: APPEARANCE CLEAR (CLEAR); BILIRUBIN NEGATIVE (NEGATIVE); COLOR YELLOW (YELLOW); GLUCOSE NEGATIVE (NEGATIVE); KETONE NEGATIVE (NEGATIVE); NITRITE NEGATIVE (NEGATIVE); PROTEIN NEGATIVE (NEGATIVE); UROBILINOGEN NORMAL (NORMAL)
[2017-11-11 20:09] LABS: BACTERIA FEW /hpf (NONE SEEN); EPITHELIAL CELLS OCC /hpf (0-5); WHITE CELLS - URINE 0-5 /hpf (0-5)
[2017-11-11 21:55] VITALS: BP 107/64
[2017-11-12 00:55] VITALS: BP 103/58
[2017-11-12 05:48] VITALS: BP 113/63
[2017-11-12 10:28] VITALS: BP 117/63
[2017-11-12 10:51] LABS: PROTIME 50.8 SECONDS (11.6-15.0)
[2017-11-12 10:52] LABS: INR 5.75 (0.85-1.17)
[2017-11-12 11:02] LABS: % SATURATION 11 % (15-55); IRON 25 ug/dl (35-150); TOTAL IRON BIND CAPACITY 227 ug/dl (260-445); UNSAT IRON BIND CAPACITY 202 ug/dl (150-375)
[2017-11-12 11:04] VITALS: BMI 25.8
[2017-11-12 13:17] VITALS: BP 105/69
[2017-11-12 16:30] VITALS: BP 95/68
[2017-11-12 19:00] VITALS: BP 124/73
[2017-11-13 03:33] VITALS: BP 160/73
[2017-11-13 04:49] LABS: BASOPHILS 0 % (0-2); EOSINOPHILS 1.3 % (0-7); HEMATOCRIT 34.7 % (42.0-54.0); HEMOGLOBIN 11.3 g/dL (13.5-17.5); IMMATURE GRANULOCYTES 0.1 % (0-5); LYMPHOCYTES 11.7 % (15-50); MCH 31.4 pg (26.0-34.0); MCHC 32.6 g/dL (31.0-37.0); MCV 96.4 fL (80.0-100.0); MEAN PLATELET VOLUME 10.7 fL (7.4-10.4); MONOCYTES 9.6 % (2-11); NEUTROPHILS 77.3 % (40-80); PLATELET COUNT 174 10x3/uL (130-400); RDW 14.8 % (11.5-14.5); WBC 7.1 10x3/uL (4.8-10.8)
[2017-11-13 04:59] LABS: CALCIUM 8.3 mg/dL (8.5-10.1); CREATININE - SERUM 1.4 mg/dL (0.6-1.3)
[2017-11-13 05:07] LABS: PROTIME 49.8 SECONDS (11.6-15.0)
[2017-11-13 05:08] LABS: INR 5.61 (0.85-1.17)
[2017-11-13 07:30] LABS: FOLATE (FOLIC ACID) - SERUM >20.0 ng/mL (>3.0)
[2017-11-13 07:44] VITALS: BP 112/73
[2017-11-13 11:01] VITALS: BP 104/56
[2017-11-13 11:01] LABS: APPEARANCE CLEAR (CLEAR); BILIRUBIN NEGATIVE (NEGATIVE); COLOR YELLOW (YELLOW); GLUCOSE NEGATIVE (NEGATIVE); KETONE NEGATIVE (NEGATIVE); NITRITE NEGATIVE (NEGATIVE); PROTEIN NEGATIVE (NEGATIVE); UROBILINOGEN NORMAL (NORMAL)
[2017-11-13 11:06] LABS: BACTERIA MODERATE /hpf (NONE SEEN); EPITHELIAL CELLS OCC /hpf (0-5); MUCUS >1+ /lpf (NONE SEEN); RED CELLS - URINE OCC /hpf (0-5)
[2017-11-13 15:22] VITALS: BP 105/66
[2017-11-13 21:03] VITALS: BP 105/69
[2017-11-14 01:52] VITALS: BP 86/51
[2017-11-14 04:33] LABS: BASOPHILS 0 % (0-2); EOSINOPHILS 0.1 % (0-7); HEMATOCRIT 31.6 % (42.0-54.0); HEMOGLOBIN 10.4 g/dL (13.5-17.5); IMMATURE GRANULOCYTES 0.2 % (0-5); LYMPHOCYTES 7.8 % (15-50); MCH 31.4 pg (26.0-34.0); MCHC 32.9 g/dL (31.0-37.0); MCV 95.5 fL (80.0-100.0); MONOCYTES 10.2 % (2-11); NEUTROPHILS 81.7 % (40-80); PLATELET COUNT 170 10x3/uL (130-400); RBC 3.31 10x6/uL (4.20-6.10); RDW 14.7 % (11.5-14.5); WBC 8.4 10x3/uL (4.8-10.8)
[2017-11-14 04:48] LABS: INR 3.86 (0.85-1.17); PROTIME 37.1 SECONDS (11.6-15.0)
[2017-11-14 05:03] LABS: ANION GAP 9.7 mmol/L (8-16); CALCIUM 8.2 mg/dL (8.5-10.1); CARBON DIOXIDE 29.3 mmol/L (21.0-32.0); CREATININE - SERUM 1.5 mg/dL (0.6-1.3)
[2017-11-14 05:37] VITALS: BP 111/78
[2017-11-14 09:01] VITALS: BP 130/58
[2017-11-14 10:42] LABS: CKMB 0.8 U/L (0.0-3.6); CREATINE KINASE 43 UL (21-232); TROPONIN-I 0.018 ng/mL (0.000-0.060)
[2017-11-14 13:03] VITALS: BP 105/55
[2017-11-14 15:09] LABS: CKMB 0.8 U/L (0.0-3.6); CREATINE KINASE 39 UL (21-232); TROPONIN-I 0.021 ng/mL (0.000-0.060)
[2017-11-14 17:15] VITALS: BP 94/59
[2017-11-14 20:28] LABS: CKMB 0.8 U/L (0.0-3.6); CREATINE KINASE 35 UL (21-232)
[2017-11-14 20:31] LABS: TROPONIN-I 0.016 ng/mL (0.000-0.060)
[2017-11-14 21:25] VITALS: BP 120/66
[2017-11-15 00:35] VITALS: BP 103/58
[2017-11-15 04:51] LABS: BASOPHILS 0 % (0-2); EOSINOPHILS 0.2 % (0-7); HEMATOCRIT 31.9 % (42.0-54.0); HEMOGLOBIN 10.6 g/dL (13.5-17.5); IMMATURE GRANULOCYTES 0.3 % (0-5); LYMPHOCYTES 7.1 % (15-50); MCH 31.8 pg (26.0-34.0); MCHC 33.2 g/dL (31.0-37.0); MCV 95.8 fL (80.0-100.0); MEAN PLATELET VOLUME 11.1 fL (7.4-10.4); MONOCYTES 7.7 % (2-11); NEUTROPHILS 84.7 % (40-80); PLATELET COUNT 181 10x3/uL (130-400); RBC 3.33 10x6/uL (4.20-6.10); RDW 14.9 % (11.5-14.5); WBC 10.1 10x3/uL (4.8-10.8)
[2017-11-15 05:01] LABS: ANION GAP 11.3 mmol/L (8-16); CALCIUM 8.4 mg/dL (8.5-10.1); CARBON DIOXIDE 28.6 mmol/L (21.0-32.0); CREATININE - SERUM 1.5 mg/dL (0.6-1.3); POTASSIUM - SERUM 3.9 mmol/L (3.5-5.1)
[2017-11-15 05:06] LABS: INR 2.01 (0.85-1.17); PROTIME 22.2 SECONDS (11.6-15.0)
[2017-11-15 05:41] VITALS: BP 118/63
[2017-11-15 08:31] VITALS: Ht 170.2 cm; Wt 83.7 kg
[2017-11-15 08:39] VITALS: BP 139/58
[2017-11-15 09:08] LABS: ANA REFLEX - DIRECT Negative (Negative)
[2017-11-15 09:53] LABS: BASOPHILS 0.1 % (0-2); EOSINOPHILS 0.3 % (0-7); HEMATOCRIT 34.4 % (42.0-54.0); HEMOGLOBIN 11.4 g/dL (13.5-17.5); IMMATURE GRANULOCYTES 1.7 % (0-5); LYMPHOCYTES 20.8 % (15-50); MCH 32.4 pg (26.0-34.0); MCHC 33.1 g/dL (31.0-37.0); MCV 97.7 fL (80.0-100.0); MEAN PLATELET VOLUME 11.2 fL (7.4-10.4); MONOCYTES 5.3 % (2-11); NEUTROPHILS 71.8 % (40-80); PLATELET COUNT 167 10x3/uL (130-400); RBC 3.52 10x6/uL (4.20-6.10); RDW 15.1 % (11.5-14.5)
[2017-11-15 09:55] LABS: WBC 15.8 10x3/uL (4.8-10.8)
[2017-11-15 10:35] LABS: ALBUMIN 2.4 g/dL (3.4-5.0); ALKALINE PHOSPHATASE 138 U/L (46-116); ALT (SGPT) 37 U/L (10-68); BILIRUBIN - TOTAL 1.93 mg/dL (0.2-1.3); CALC OSMOLALITY 268 mosm/kg (275-300); CALCIUM 8.1 mg/dL (8.5-10.1); CARBON DIOXIDE 24.6 mmol/L (21.0-32.0); CHLORIDE - SERUM 94 mmol/L (98-107); CREATININE - SERUM 1.7 mg/dL (0.6-1.3); GLUCOSE 163 mg/dL (74-106); POTASSIUM - SERUM 3.9 mmol/L (3.5-5.1); SODIUM 130 mmol/L (136-145); UREA NITROGEN 24 mg/dL (7-18); eGFR NON AFRICAN AMERICAN 41 mL/min (90-120)
[2017-11-15 10:37] LABS: TROPONIN-I < 0.017 ng/mL (0.000-0.060)
[2017-11-17 13:17] LABS: ANCA - ANTIMYELOPEROXIDASE <9.0 U/mL (0.0-9.0); ANCA - ANTIPROTEINASE 3 <3.5 U/mL (0.0-3.5); ANCA - ATYPICAL <1:20 titer (Neg:<1:20); ANCA - CYTOPLASMIC <1:20 titer (Neg:<1:20); ANCA - PERINUCLEAR <1:20 titer (Neg:<1:20)
== END 2017-11-15 17:35 | DRG 208 ==
LOC: D.M2 14:15 → D.ICU 11-15 10:13 → D.SDCHOLD 11-15 13:20 → D.ICU 11-15 17:35
PROVIDERS: Emergency Medicine; Family Medicine; Internal Medicine Nephrology; Internal Medicine Pulmonary Disease
PROC: 5A12012 Performance of Cardiac Output, Single, Manual (ICD-10-PCS; principal; 2017-11-15)
PROC: 5A1935Z Respiratory Ventilation, Less than 24 Consecutive Hours (ICD-10-PCS; 2017-11-15)
PROC: 0BH17EZ Insertion of Endotracheal Airway into Trachea, Via Natural or Artificial Opening (ICD-10-PCS; 2017-11-15)
DX: J69.0 Pneumonitis due to inhalation of food and vomit (principal); J96.01 Acute respiratory failure with hypoxia; I50.23 Acute on chronic systolic (congestive) heart failure; I13.0 Hypertensive heart and chronic kidney disease with heart failure and stage 1 through stage 4 chronic kidney disease, or unspecified chronic kidney disease; E87.1 Hypo-osmolality and hyponatremia; I42.9 Cardiomyopathy, unspecified; N17.9 Acute kidney failure, unspecified; N18.9 Chronic kidney disease, unspecified; E11.22 Type 2 diabetes mellitus with diabetic chronic kidney disease; E11.40 Type 2 diabetes mellitus with diabetic neuropathy, unspecified; E78.5 Hyperlipidemia, unspecified; I25.10 Atherosclerotic heart disease of native coronary artery without angina pectoris; I48.2 Chronic atrial fibrillation; T45.515A Adverse effect of anticoagulants, initial encounter; D50.9 Iron deficiency anemia, unspecified; F03.90 Unspecified dementia, unspecified severity, without behavioral disturbance, psychotic disturbance, mood disturbance, and anxiety; I08.3 Combined rheumatic disorders of mitral, aortic and tricuspid valves; E55.9 Vitamin D deficiency, unspecified; N40.0 Benign prostatic hyperplasia without lower urinary tract symptoms; I27.20 Pulmonary hypertension, unspecified; J84.10 Pulmonary fibrosis, unspecified; Z95.5 Presence of coronary angioplasty implant and graft; Z95.1 Presence of aortocoronary bypass graft; Z85.46 Personal history of malignant neoplasm of prostate; I25.2 Old myocardial infarction; Z87.891 Personal history of nicotine dependence